=== PATIENT | male | born 1940 | race Caucasian/White ===

== ENCOUNTER 2024-04-28 08:42 | Observation (INO) ==
--- NOTE | 2024-03-23 14:00 | PAT Medication Instructions ---
Medication Instructions Date of Service March 23, 2024 Home Medications Medication Instructions Recorded celecoxib 200 mg capsule (Celebrex) 200 mg PO Q12H PRN pain #30 caps 06/25/23 atorvastatin 10 mg tablet 10 mg PO QAM tamsulosin 0.4 mg capsule 0.4 mg PO QAM bupropion HCl 100 mg tablet,12 hr sustained-release 100 mg PO QAM buspirone 10 mg tablet 10 mg PO QAM glucosamine sulf dipot chlr,msm,chond 550 mg-C 30 mg-m[place] 1 mg capsule (Gluco samine Chondroitin) 1 cap PO BID memantine 5 mg tablet 5 mg PO BID trazodone 50 mg tablet 50 mg PO HS celecoxib 200 mg capsule (Celebrex) 200 mg PO Q12H PRN pain ASK your surgeon for instructions celecoxib 200 mg capsule (Celebrex) 200 mg PO Q12H PRN pain STOP taking 2 weeks before surgery (or as soon as possible if surgery is within 2 weeks) glucosamine sulf dipot chlr,msm,chond 550 mg-C 30 mg-michoacano 1 mg capsule (Glucosamine Chondroitin) 1 cap PO BID Take morning of surgery With a small sip of water, OTHERWISE NOTHING TO EAT OR DRINK AFTER MIDNIGHT: atorvastatin 10 mg tablet 10 mg PO QAM tamsulosin 0.4 mg capsule 0.4 mg PO QAM bupropion HCl 100 mg tablet,12 hr sustained-release 100 mg PO QAM buspirone 10 mg tablet 10 mg PO QAM memantine 5 mg tablet 5 mg PO BID Take evening before surgery memantine 5 mg tablet 5 mg PO BID trazodone 50 mg tablet 50 mg PO HS Other Notes If you have any questions please call us at [phone] or [phone] or [phone] or [phone]
--- NOTE | 2024-04-05 12:49 | Anesthesiology Consultation ---
Date of Service April 05, 2024 Assessment & Plan (1) Encounter for pre-operative examination: Chart Review Chart Review: Acceptable Risk for Surgery and Patient seen in Pre Admission Testing - Discussed with Dr. Medina- patient denies any cardiac symptoms- patient can proceed as scheduled - Patient is NOT an ideal OPJ candidate (currently 23 hour obs) Per PAT appt on 04/05/24, no recent illness/disease exposures, illness related symptoms, or recent illness/disease positive tests. Will leave to surgeon's discretion if preop Covid testing needed Left Reverse TSA 06/25/23= Done under [place] with MAC #4. ETT #7.5. Atraumatic x 1 DL - Cardiology visit (06/07/23) (prior to left reverse TSA on 06/25/23): "He presents today for preop evaluation, plans to undergo shoulder replacement on 06/25/23 at [facility].. feeling well from cardiac standpoint, euvolemic on exam.. chronic bradycardia, luckily he is asymptomatic, denies syncope, he is not on any AV krish blockers, discussed if he were to become symptomatic he should immediately contact clinic, may require pacemaker.. while feeling well, I recommend he undergo dobutamine stress echo due to history of ascending aorta aneurysm and low functional capacity, would not tolerate treadmill stress echo due to orthopedic limitations.. continue all current medications at current doses.. will contact sleep medicine per patient request for new CPAP equipment" Follow up in one year - Cardiology note (06/17/23): "I called and discussed the patient's stress test results with him. He has been followed by Cardiology for history of frequent premature atrial contractions which he had been observed on Holter monitor performed in 2016, most recent slat basket maker machine performed in 2019 revealed improvement to that regard. He was has a history of moderate aortic root and mild proximal ascending aorta enlargement. The patient was recently seen in preoperative cardiology consultation by Margarita Willson PA-C of our practice. Patient has had debilitating shoulder discomfort that has been refractory to nonoperative treatment and shoulder replacement surgery is tentatively planned.. The patient underwent dobutamine stress echocardiogram today, and denies having had any chest discomfort during the test per his description to me. He did feel a brief episode of elevated heart rate toward the end of the test. The patient was found to have an abnormal stress EKG response with development of 1 to 2 millimeter horizontal and downsloping ST segment depression in the inferior and lateral leads as well as frequent PVCs and 2 short runs of nonsustained ventricular tachycardia. The echocardiographic response to pharmacologic stress was normal without stress-induced wall motion abnormalities. On further review of his chart, the patient had a previous exercise stress echocardiogram perfor [facility] in May, and at that time the exercise EKG response was similar to that observed today with stress-induced ST segment depression in the inferior and lateral leads and frequent PVCs. He went on to undergo invasive coronary angiography at that time performed by Dr. Bro with widely patient coronary anatomy. At that time it was felt that the patient had a false-positive stress EKG response. Overall, it was felt that the dobutamine stress echocardiogram results from today are reassuring in terms of his preoperative evaluation with no stress-induced angina and normal echocardiographic response. As noted, EKG response is abnormal, but similar to that observed in 2014 and was determined at that time that his EKG response was a false-positive. Moderate aortic root enlargement and mild proximal ascending aorta enlargement were noted, unchanged compared to his previous transthoracic study performed in 2020. I counseled the patient to continue his current treatment and recommended proceeding to shoulder surgery with an estimated low risk of perioperative cardiac complication." Teaching & Discussion Pre-Anesthesia Teaching/Discussion Notes: Instructed NPO after midnight before surgery,except medications with 15 cc of water. Medication instructions provided according to the PAT guidelines. History Surgery Operation Date: 04/28/24 10:00 Proposed Procedures p Left Total Knee Arthroplasty - Henrique Huynh DO Height/Weight Height: 5 ft 10 in Weight: 90 kg Allergies Allergy/AdvReac Type Severity Reaction Status Date / Time poison whit extract Allergy Intermediate Rash, Skin Verified 03/21/24 07:31 Blistering poison oak extract Allergy Intermediate Rash, Skin Verified 03/21/24 07:31 Blistering Penicillins Allergy Mild Rash Verified 03/21/24 07:31 Medications Home Medications Medication Instructions Recorded Confirmed Last Taken atorvastatin 10 mg tablet 10 mg PO QAM 01/29/20 03/21/24 06/25/23 07:30 tamsulosin 0.4 mg capsule 0.4 mg PO QAM 01/29/20 03/21/24 06/25/23 07:30 bupropion HCl 100 mg tablet,12 hr 100 mg PO QAM 06/19/21 03/21/24 Unknown sustained-release buspirone 10 mg tablet 10 mg PO QAM 05/28/23 03/21/24 06/25/23 07:30 glucosamine sulf dipot 1 cap PO BID 05/28/23 03/21/24 Unknown chlr,msm,chond 550 mg-C 30 mg-michoacano 1 mg capsule (Glucosamine Chondroitin) memantine 5 mg tablet 5 mg PO BID 05/28/23 03/21/24 06/25/23 07:30 trazodone 50 mg tablet 50 mg PO HS 05/28/23 03/21/24 06/24/23 19:30 celecoxib 200 mg capsule (Celebrex) 200 mg PO Q12H PRN pain #30 caps 06/25/23 03/21/24 Unknown Past Medical History Medical History Aortic root enlargement DSE 06/17/23: Moderately enlarged aortic root at 4.5 cm. Mildly enlarged proximal ascending thoracic aorta at 4.3 cm. Arthritis Borderline high cholesterol BPH (benign prostatic hyperplasia) GERD (gastroesophageal reflux disease) stable History of skin cancer s/p excision (ear) History of vertigo No issue x years HTN (hypertension) Per PCP records Patient denies No medications Insomnia Memory problem Short-term memory issues Migraine Sinus bradycardia asymptomatic- follows with [facility] Cardio Sleep apnea CPAP (compliant) Exercise / Class Metabolic Activity II 4-5 Yardwork/Stairs/Walk up hill (one flight of stairs - no chest pain or SOB ) Past Family History Family History Other No family history of adverse response to anesthesia Past Surgical History Surgical History H/O prostate biopsy History of colonoscopy History of ear surgery Left (as child) History of lumbar surgery no hardware History of tooth extraction S/p reverse total shoulder arthroplasty left, 05/2023 S/P umbilical hernia repair, follow-up exam 2013, [facility] Past Anesthesia History No Hx of Anesthesia Complications and No Family Hx of Anesthesia Complications History of PONV No Hx of PONV and No Hx of Motion Sickness Social History Smoking Status: Former smoker Do You Dip or Chew Tobacco: No (quit in his 20's, only chewed for short time) Smoking End Date: 40 years ago; smoked for 30 years Hx Alcohol Use: Yes Alcohol type: beer alcohol intake frequency: 0-2 drinks per day (1-2 beers/day) Hx Substance Use: No substance use type: does not use Review of Systems Patient denies chest pain, shortness of breath, dyspnea on exertion, cough, wheezing, palpitations. No hx of seizures, stroke, OK. No hx of blood clots or blood transfusions Physical Exam Vital Signs VITALS BP 127/73 P 52 TEMP 98.8 SP02 95% RESP 16 Constitutional no acute distress ENMT Mouth: no TMJ clicking Thyromental Distance: > or= 3.5 Finger Breadths (3.5) Mallampati Class: I (smaller airway) Full dentures on top and bottom Neck + limited neck extension Respiratory normal respiratory effort; no respiratory distress Auscultation: lungs clear to auscultation bilaterally; no wheezes Cardiovascular Rate/Rhythm: regular rate and regular rhythm Heart Sounds: no murmur Vessels: no carotid bruit Musculoskeletal Spine: no pain with cervical ROM Extremities: extremities normal to inspection Psychiatric Orientation: alert Lab Results Anesthesia Preop Results Results Anesthesia Widget: WBC 4.45 K/ul (4.8-10.8) L 04/05/24 Hgb 14.2 g/dl (14.0-18.0) 04/05/24 Hct 40.9 % (42.0-52.0) L 04/05/24 Plt 149 K/uL (130-400) 04/05/24 Na 140 mmol/L (136-145) 04/05/24 K 3.9 mmol/L (3.5-5.1) 04/05/24 Cl 107 mmol/L (98-107) 04/05/24 CO2 28 mmol/L (21-32) 04/05/24 BUN 18 mg/dl (6-23) 04/05/24 Creat 0.94 mg/dl (0.6-1.4) 04/05/24 Glucose Level 115 mg/dl (70-99(Fasting)) H 04/05/24 PT 10.9 Seconds (9.0-12.0) 04/05/24 PTT 25 Seconds (21-31) 04/05/24 INR 1.0 (0.9-1.1) 04/05/24 Blood Type A Negative 04/05/24 Antibody Screen NEGATIVE 04/05/24 Testing Electrocardiogram Date: 06/07/23 SB with occasional and consecutive PVCs at 58bpm Nonspecific ST abnormality Chest X-Ray Date: 05/28/23 FINDINGS: PA and lateral chest radiographs are compared to study dated 06/19/2021. The heart is enlarged noting atherosclerotic calcification of the thoracic aorta. The pulmonary vasculature is noncongested. Chronic interstitial thickening is similar to previous. There is bibasilar scarring/atelectasis. No airspace consolidation or pleural effusion is identified. There is no pneumothorax. The skeletal structures are osteopenic. The bony thorax appears intact. Degenerative change is noted in the thoracic spine. IMPRESSION: Cardiomegaly with no active disease in the chest. Echocardiogram Date: 05/10/20 LVEF 55-59%. LV wall motion is normal. Mild AR. Moderately enlarged aortic root at 4.7 cm. Mildly enlarged proximal ascending thoracic aorta at 4.2 cm. Grade 1 diastolic dysfunction. Stress Test Date: 06/17/23 Type: DSE Echocardiographic response to pharmacologic stress is normal with normal resting wall motion and no stress-induced wall motion abnormalities. The stress EKG response is abnormal with predominant of 1-2 mm horizontal and downsloping ST segment depression in the inferior and lateral leads as well as frequent ventricular ectopy and 2 short salvos of nonsustained V. tach, the longest of which was 5 beats in duration. Heart rate and blood pressure response to pharmacologic stress was normal. EKG return to pretest baseline during the post-rest recovery interval. Rest study: Mildly increased concentric LV wall thickness, mild AR, LVEF 55-59%, moderately enlarged aortic root 4.5 cm, proximal ascending thoracic aorta mildly enlarged 4.3 cm. 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 Predominant underlying rhythm was Sinus Rhythm. 6 Supraventricular Tachycardia runs occurred, the run with the fastest interval lasting 4 beats with a max rate of 141 bpm, the longest lasting 10 beats with an avg rate of 97 bpm. Isolated SVEs were rare (<1.0%), SVE. Couplets were rare (<1.0%), and SVE Triplets were rare (<1.0%). Isolated. VEs were rare (<1.0%), VE Couplets were rare (<1.0%), and no VE Triplets were present. Ventricular Bigeminy and Trigeminy were present. There are no patient markers or diary entries recorded.
[~2024-04-28 08:42] MED LIST: BUPIVACAINE 0.25% PF 30 ML VIAL ONE; BUPIVACAINE 0.5 % 5 MG/1 ML PF 10ML VIAL ONE; MIDAZOLAM HCL 1 MG/ML 2ML VIAL ONE
[2024-04-28] MEDS ORDERED: fentaNYL citrate PF 100 MCG/2 ML VIAL IV PRN (09:54)
[2024-04-28] MEDS: FAMOTIDINE 20 MG TAB PO SCH (09:54)
[2024-04-28] MEDS ORDERED: ONDANSETRON INJ 2 MG/ML 2 ML VIAL IV PRN ×2 (09:54→14:24)
[2024-04-28] MEDS ORDERED: ePHEDrine sulfate 50 MG/ML AMP IV PRN (09:54)
[2024-04-28] MEDS ORDERED: ATROPINE SULFATE 0.1 MG/ML 10ML SYR IV PRN (09:54)
[2024-04-28] MEDS: LR 60ML/HR IV SCH (09:54)
[2024-04-28] MEDS: ACETAMINOPHEN 500 MG TAB PO SCH ×2 (09:54→14:50)
[2024-04-28] MEDS: GABAPENTIN 300 MG CAP PO SCH (09:54)
[2024-04-28] MEDS: dexAMETHasone**PF** 10 MG/ML VIAL IV SCH (09:54)
[2024-04-28] MEDS: LR 500ML BOLUS, THEN 15ML/HR IV SCH (09:55)
--- NOTE | 2024-04-28 10:15 | History & Physical Bridge Note ---
Date of Service April 28, 2024 History & Physical Bridge Note I have examined the patient, reviewed the History & Physical and in the interval since the performance of the History & Physical I have noted the following changes of clinical significance: no changes noted
[2024-04-28] MEDS: TRANEXAMIC ACID 1,000 MG **IV Pre-op IV SCH (11:05)
--- OUTSIDE RECORDS SUMMARY | 2024-04-28 11:27 | External Medical Summary | Summary of Care ---
Author Name Unknown Organization [facility] Address [address] [place] [address] Phone [phone] Care Team Providers Care Treater Name Role Phone Ger Contreras MD Primary Care Provider [phone] Encounter Details Date Type Department Care Team (Late st Contact Info) Description 04/20/2024 Orders Only PATIENT PORTAL DO NOT DELETE THIS DEPT USED BY [place] [id number] Allergies Active Allergy Reactions Criticality Noted Date Comments Penicillins 05/04/2001 rash documented as of this encounter (statuses as of 04/20/2024) Medications Misc Natural Products (GLUCOSAMINE CHONDROITIN ADV) Tablet Take 1 Tablet by mouth in the morning and 1 Tablet before bedtime. Active Apoaequorin 10 MG Oral Capsule Take by mouth daily. Active CPAP every night at bedtime. Active Diclofenac Sodium 1 % External Gel (Voltaren) Apply 2 grams topically to affected area 2 times a day. 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 Apply to right ear canal, alternate with floxin ear drops 30 mL 3 Active Omeprazole 40 MG Oral Capsule Delayed Release (PriLOSEC)Indica tions:Abdominal pain, epigastric Take 1 Capsule by mouth in the morning. 90 Capsule 3 04/06/2024 8:04 PM EST 4 Active Finasteride 5 MG Oral Tablet (Proscar) Take 1 Tablet by mouth in the morning. 90 Tablet 3 02/09/2024 10:54 AM EST 4 Active busPIRone HCl 10 MG Oral Tablet (Buspar) take 1 tablet by mouth twice a day 180 Tablet 2 03/08/2024 6:32 PM EST 4 Active Atorvastatin Calcium 10 MG Oral Tablet (Lipitor) TAKE ONE TABLET BY MOUTH EVERY DAY 90 Tablet 1 03/14/2024 11:37 AM EST 4 Active Memantine HCl 5 MG Oral Tablet (Namenda) TAKE ONE TABLET BY MOUTH EVERY DAY IN THE MORNING AND TAKE ONE TABLET BY MOUTH EVERY DAY BEFORE BEDTIME 180 Tablet 3 03/28/2024 10:44 AM EST 4 12/28/19 25 Active traZODone HCl 50 MG Oral Tablet (Desyrel) take one tablet by mouth at bedtime 90 Tablet 1 02/10/2024 2:55 PM EST 4 Active Tamsulosin HCl 0.4 MG Oral Capsule (Flomax) TAKE ONE CAPSULE BY MOUTH EVERY DAY IN THE MORNING 90 Capsule 1 03/28/2024 10:44 AM EST 4 03/27/20 25 Active documented as of this encounter (statuses as of 04/20/2024) Active Problems Problem Noted Date Diagnosed Date Chronic insomnia 04/18/2024 Prostate nodule 05/26/2023 Overweight (BMI 25.0-29.9) 07/06/2022 Primary osteoarthritis of both shoulders 022 Restless legs syndrome 08/04/2021 ALOK (generalized anxiety disorder) 07/30/2020 Gastroesophageal reflux dise ase with esophagitis without hemorrhage 07/27/2020 BPH with obstruction/lower urinary tract symptom s 04/05/2018 Aneurysm, ascending aorta 04/03/2016 Sinus bradycardia 04/03/2016 Hx of nonmelanoma skin cancer 10/15/2014 Overview (03/13/2020): Hx NMSC - most recently 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, 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 Premature atrial complexes 07/03/2016 0 07/27/2020 Frequent PVCs 04/03/2016 05/10/2017 Hx of actinic keratosis 03/18/2016 05/0 03/2020 Overview (10/18/2019): Historical. Bronchitis, complicated 08/13/201401/28 Sinus congestion 08/13/2014 02/19/2016 Enlarged thoracic aorta 07/09/201408/2016 Aortic regurgitation 07/09/2014 021 Abnormal stress echocardiogram 05/31/2014 08/30/2017 Abnormal coagulation profile 05/31/2014 05/31/2014 Hernia, inguinal 05/23/2014 02/26/2017 SOB (shortness of breath) 05/23/2014 Lipoma of breast 05/23/2014 08/30/2017 Lipoma of arm 05/23/2014 03/18/2016 Abdominal pain, generalized 06/12/2013 05/23/2014 Blood in stool 06/12/2013 05/23/2014 Right leg numbness 09/12/2012 5 Dyslipidemia, goal to be determined 02/09/2012 09/12/2012 Snoring 04/15/2011 05/23/2014 Overview (07/09/2015): ICD-10 update of inactive term Malaise and fatigue 04/15/2011 05/23/19 15 Sciatica 02/25/2011 05/23/2014 Family history of ischemic heart disease 08/13/2009 11/17/2016 Dyslipidemia, goal to be determined 03/07/2009 03/13/2013 Overview (03/07/2009): Per Lipid Taxonomy. Sleep apnea 10/20/2007 07/17/2011 Overview (04/24/2011): Wears CPAP AHP Chronic rhinitis 10/07/2007 09/12/2012 Subjective tinnitus 10/07/2007 09/13/19 13 Dyspnea and respiratory abnormality 10/07/2007 09/12/2012 Overview (01/19/2017): ICD-10 update of inactive term Elevated blood pressure, situational 09/23/2007 11/28/2010 Elevated blood pressure, situational 09/23/2007 10/20/2007 Anxiety state 07/11/2007 05/23/2014 ADVANCE DIRECTIVE INFORMATION 11/06/2005 10/18/2019 Overview (10/18/2019): Pt declines booklet. Historical. GENERAL OSTEOARTHROSIS 08/04/200405/23 Reflux esophagitis 08/04/2004 5 PURE HYPERCHOLESTEROLEM 02/26/200302/26 Overview (03/07/2009): Per Lipid Taxonomy. 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 Deviated nasal septum 2014 documented as of this encounter (statuses as of 04/20/2024) Immunizations Name Administration Dates Next Due Seasonal Influenza Vac., MDV, IM, 0.5 mL (Fluzon e) 03/09/2007 TDAP (age 10 and older)(Boostrix) 02/26/2017 Zoster Vaccine Recombinant (Shingrix) 05/11/2018 ,03/02/2018 documented as of this encounter Social History Tobacco Use Types Packs/Day Years Used Date Smoking Tobacco: Former Cigars Smokeless Tobacco: Never Comments:smokes 4-6 cigars/d aily Alcohol Use Standard Drinks/Week Comments Yes 0 (1 standard drink = 0.6 oz pur e alcohol) occ PHQ-2 Answer Date Recorded PHQ-2 Score 0 10/31/2019 Hunger Vital Sign Answer Date Recorded Within the past 12 months, y ou worried that your food would run out before you got the money to buy more. Never true 07/31/19 21 Within the past 12 months, t he food you bought just didn't last and you didn't have money to get more. 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 Not on file Not on file Not on fi le documented as of this encounter Plan of Treatment Upcoming Encounters Date Type Department Care Team (Late st Contact Info) Description 10/16/2024 8:20 AM EDT Office Visit Family Practice [facility] [address] [place] [address] Ger Contreras MD [address] [place] [address] 12/15/2024 9:00 AM EDT Laboratory Laboratory [facility] [address] [place] [id number] [facility] [address] [place] [address] 12/22/2024 10:15 AM EDT Office Visit Urology Betty Velasquez [address] [address] Keaton Krishna MD [address] [address] 02/27/2025 9:00 AM EST Office Visit Sleep Disorders Ctr [facility] [address] [place] [phone] Cyndi Parker CRNP [address] [place] [address] Scheduled Procedures Name Priority Associated Diagnoses Date/Ti me COLONOSCOPY FLEXIBLE PROXIMA L DIAGNOSTIC Recall Special screening for malignant neoplasms, colon Health Maintenance Due Date Last Done Comments Pneumococcal Vaccine: 50+ Years (1 of 1 - PCV) 01/09/1992 Adult Wellness Visit 01/09/2008 Albumin/Creatinine Ratio 07/26/2017 07/26/2014 Depression Screening 10/30/2020 10/31/2019 COVID-19 Vaccine ( - 2023- season) 2023 Influenza Vaccine (FLU shot) (#1) 2023 03/09/2007 GFR 04/06/2024 04/06/2023, 10/28, 06/19/2021, Additional history exists DTap/Tdap Vaccines (2 - Td or Tdap) 02/26/2027 02/26/2017, 04/29/2004, 09/26/1994 Zoster Vaccines Completed 05/11/2018, 03/02/2018 HPV (Gardasil) Vaccine Aged Out No lo nger eligible based on patient's age to complete this topic Hepatitis B Vaccine Aged Out No longe r eligible based on patient's age to complete this topic MENINGOCOCCAL (MENACTRA/MENVEO) Aged Out No longer eligible based on patient's age to complete this topic documented as of this encounter Medical Devices Implanted Type Area Launch [employer] Device Identifier Shelf Expiration Date Model / Serial / Lot 3d Max Lite Mesh Bard Implanted:Qty : 1 on 11/06/2013 at OR [facility] Tissue - Non Human Left: Groin 01/26/2018 [id number] / / [id number] 3d Max Lite Mesh Large Right Implanted:Qty : 1 on 11/06/2013 at OR [facility] Tissue - Non Human Right: Groin 08/06/2018 [id number] / / [id number] 3dmax Mesh Implanted:Qty : 1 on 11/06/2013 at OR [facility] Tissue - Non Human Left: Groin 04/28/2018 [id number] / / [id number] Hernia Patch Implanted:Qty : 1 on 11/06/2013 at OR [facility] Tissue - Non Human N/A: Abdomen 05/27/2015 [id number] / / [id number] documented as of this encounter Care Teams Treater Relationship Specialty Start Date End Date Ger Contreras MD [address] [facility] [place] [address] PCP - General Family Medicine 04/14/21 documented as of this encounter
--- OUTSIDE RECORDS SUMMARY | 2024-04-28 11:27 | External Medical Summary | Summary of Care ---
Author Name Unknown Organization [facility] Address [address] [place] [address] Phone [phone] Care Team Providers Care Bike Designer Name Role Phone Ger Contreras MD Primary Care Provider [phone] Encounter Details Date Type Department Care Team (Late st Contact Info) Description 04/18/2024 Population Health External Data Unspecified Department Allergies Active Allergy Reactions Criticality Noted Date Comments Penicillins 05/04/2001 rash documented as of this encounter (statuses as of 04/18/2024) Medications Misc Natural Products (GLUCOSAMINE CHONDROITIN ADV) [...] 90 Capsule 3 04/06/2024 8:04 PM EST 03/12/202 4 Active Finasteride 5 MG Oral Tablet [...] as of this encounter (statuses as of 04/18/2024) Active Problems Problem Noted Date Diagnosed Date [...] SCCIS and L antihelix - SCC [place] [facility] [place] Dyslipidemia 09/12/2012 Overview (07/29/2015): ICD-10 update of inactive term MARY on CPAP 07/17/2011 HTN, goal below 130/80 11/28/2010 Diverticulosis of colon 08/25/2001 Attention deficit disorder (ADD) without hyperac tivity Overview (07/30/2020): Sees psych at [place] documented as of this encounter (statuses as of 04/18/2024) Resolved Problems Problem Noted Date Diagnosed Date [...] as of this encounter (statuses as of 04/18/2024) Immunizations Name Administration Dates Next Due Seasonal [...] 8:20 AM EDT Office Visit Family Practice [facility] [address] [address] Ger Contreras MD [address] [address] 12/15/2024 9:00 AM EDT Laboratory Laboratory [facility] [address] [place] [phone] [facility] 12/22/2024 10:15 AM EDT Office Visit Urology Betty Velasquez [address] [address] Keaton Krishna MD [address] [address] 02/27/2025 9:00 AM EST Office Visit Sleep Disorders Ctr [facility] [address] [phone] Cyndi Parker CRNP [address] [address] Scheduled Procedures Name Priority Associated Diagnoses Date/Ti me COLONOSCOPY FLEXIBLE PROXIMA L DIAGNOSTIC Recall Special screening for malignant neoplasms, colon Health Maintenance Due Date Last Done Comments Pneumococcal Vaccine: 50+ Years (1 of 1 - PCV) 01/09/1992 Adult Wellness Visit 01/09/2008 Albumin/Creatinine Ratio 07/26/2017 07/26/2014 Depression Screening 10/30/2020 10/31/2019 COVID-19 Vaccine (1 - season) 2023 Influenza Vaccine (FLU shot) (#1) [...] this encounter Medical Devices Implanted Type Area [employer] Device Identifier Shelf Expiration Date Model / Serial / Lot 3d Max Lite Mesh Bard Implanted:Qty : 1 on 11/06/2013 at OR [facility] Tissue - Non Human Left: Groin 01/26/2018 [id number] / / [id number] 3d Max Lite Mesh Large Right Implanted:Qty : 1 on 11/06/2013 at OR [facility] Tissue - Non Human Right: Groin 08/06/2018 [id number] / / [id number] 3dmax Mesh Implanted:Qty : 1 on 11/06/2013 at OR [facility] Tissue - Non Human Left: Groin 04/28/2018 [id number] / / [id number] Hernia Patch Implanted:Qty : 1 on 11/06/2013 at OR [facility] Tissue - Non Human N/A: Abdomen 05/27/2015 [id number] / / [id number] documented as of this encounter Care Teams Bike Designer Relationship Specialty Start Date End Date Ger Contreras MD [address] [address] PCP - General Family Medicine 04/14/21 documented as of this encounter
--- OUTSIDE RECORDS SUMMARY | 2024-04-28 11:27 | External Medical Summary | Summary of Care ---
Author Name Unknown Organization [facility] Address [address] [place] [address] Phone [phone] Care Team Providers Care Direct Marketing Intern Name Role Phone Ger Contreras MD Primary Care Provider [phone] Reason for Visit * Reason Comments Follow Up Pt here for follow u p Encounter Details Date Type Department Care Team (Latest Contact Info) Description 04/18/2024 8:00 AM EST [facility] [address] [place] [address] Ger Contreras MD [address] [facility] [place] [address] HTN, goal below 130/80*; MARY on CPAP; Dyslipidemia; Gastroesophageal reflux disease with esophagitis without hemorrhage; BPH with obstruction/lower urinary tract symptoms; Primary osteoarthritis of both shoulders; Overweight (BMI 25.0-29.9); ALOK (generalized anxiety disorder); Attention deficit disorder (ADD) without hyperactivity; Chronic insomnia Allergies Active Allergy Reactions Criticality Noted Date [...] 2 times a day. 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 Apply to right ear canal, alternate with floxin ear drops 30 mL 03/03/20 23 Active Omeprazole 40 MG Oral Capsule Delayed Release (PriLOSEC)Indic ations:Abdomina l pain, epigastric Take 1 Capsule by mouth in the morning. 90 Capsule 3 5 8:04 PM EST 06/08/19 24 Active Finasteride 5 MG Oral Tablet (Proscar) Take 1 Tablet by mouth in the morning. 90 Tablet 3 4 10:54 AM EST 06/08/19 24 Active busPIRone HCl 10 MG Oral Tablet (Buspar) take 1 tablet by mouth twice a day 180 Tablet 2 4 6:32 PM EST 06/30/19 24 Active Atorvastatin Calcium 10 MG Oral Tablet (Lipitor) TAKE ONE TABLET BY MOUTH EVERY DAY 90 Tablet 1 4 11:37 AM EST 12/28/19 24 Active Memantine HCl 5 MG Oral Tablet (Namenda) TAKE ONE TABLET BY MOUTH EVERY DAY IN THE MORNING AND TAKE ONE TABLET BY MOUTH EVERY DAY BEFORE BEDTIME 180 Tablet 3 4 10:44 AM EST 12/28/19 24 025 Active traZODone HCl 50 MG Oral Tablet (Desyrel) take one tablet by mouth at bedtime 90 Tablet 1 4 2:55 PM EST 02/09/20 24 Active Tamsulosin HCl 0.4 MG Oral Capsule (Flomax) TAKE ONE CAPSULE BY MOUTH EVERY DAY IN THE MORNING 90 Capsule 1 4 10:44 AM EST 03/27/20 24 025 Active busPIRone HCl 10 MG Oral Tablet (Buspar) take 1 tablet by mouth three times a day 270 Tablet 1 03/15/20 24 025 Discontinued documented as of this encounter (statuses as [...] hyperac tivity Overview (07/30/2020): Sees psych at [place] documented as of this encounter (statuses as of 04/18/2024) Resolved Problems Problem Noted Date Diagnosed Date Resolved Date Prediabetes 07/07/2022 08/05/2022 Hx of atypical nevus 03/19/2017 021 Overview (10/18/2019): Historical. Premature atrial complexes 07/03/2016 0 07/27/2020 Frequent PVCs 04/03/2016 05/10/2017 Hx of actinic keratosis 03/18/2016 050 03/2020 Overview (10/18/2019): Historical. Bronchitis, complicated 08/13/201401/28 Sinus congestion 08/13/2014 02/19/2016 Enlarged thoracic aorta 07/09/20140 08/2016 Aortic regurgitation 07/09/2014 021 Abnormal stress echocardiogram [...] fi le documented as of this encounter Last Filed Vital Signs Vital Sign Reading Time Taken Comments Blood Pressure 120/78 04/18/2024 8:11 AM EST Pulse 52 04/18/2024 8:11 AM EST Temperature 36.1 C (96.9 F) 04/18/2024 8:11 AM ES T Respiratory Rate 18 04/18/2024 8:11 AM EST Oxygen Saturation - - Inhaled Oxygen Concentration - - Weight 90.3 kg (199 lb) 04/18/2024 8:11 AM EST Height 177.8 cm (5' 10") 04/18/2024 8:11 AM EST Body Mass Index 28.55 04/18/2024 8:11 AM EST documented in this encounter Progress Notes * Ger Contreras MD - 04/18/2024 8:42 AM EST SUBJECTIVE: Ric Hodges is a 84 year old male. Chief Complaint Patient presents with Follow Up Pt here for follow up HPI: Frederick is doing very well. He is having knee surgery at the end of this month. He has no cardiopulmonary symptoms. Blood work reviewed. Medications reviewed. Patient Active Problem List Diagnosis Diverticulosis of colon Attention deficit disorder (ADD) without hyperactivity HTN, goal below 130/80 MARY on CPAP Dyslipidemia Hx of nonmelanoma skin cancer Aneurysm, ascending aorta (HCC) Sinus bradycardia BPH with obstruction/lower urinary tract symptoms Gastroesophageal reflux disease with esophagitis without hemorrhage ALOK (generalized anxiety disorder) Restless legs syndrome Primary osteoarthritis of both shoulders Overweight (BMI 25.0-29.9) Prostate nodule Chronic insomnia Current Outpatient Medications Medication Sig Dispense [place] [facility] [place] Natural Products (GLUCOSAMINE CHONDROITIN ADV) Tablet Take 1 Tablet by mouth in the morning and 1 Tablet before bedtime. Apoaequorin 10 MG Oral Capsule Take by mouth daily. CPAP every night at bedtime. Diclofenac Sodium 1 % External Gel (Voltaren) Apply 2 grams topically to affected area 2 times a day. 300 g 3 Clotrimazole 1 % External Solution (Mycelex) Apply topically to affected area 2 times a day. Apply to right ear canal, alternate with floxin ear drops 30 mL 0 Omeprazole 40 MG Oral Capsule Delayed Release (PriLOSEC) Take 1 Capsule by mouth in the morning. 90Capsule 3 Finasteride 5 MG Oral Tablet (Proscar) Take 1 Tablet by mouth in the morning. 90 Tablet 3 busPIRone HCl 10 MG Oral Tablet (Buspar) take 1 tablet by mouth twice a day 180 Tablet 2 Atorvastatin Calcium 10 MG Oral Tablet (Lipitor) TAKE ONE TABLET BY MOUTH EVERY DAY 90 Tablet 1 Memantine HCl 5 MG Oral Tablet (Namenda) TAKE ONE TABLET BY MOUTH EVERY DAY IN THE MORNING AND TAKEONE TABLET BY MOUTH EVERY DAY BEFORE BEDTIME 180 Tablet 3 traZODone HCl 50 MG Oral Tablet (Desyrel) take one tablet by mouth at bedtime 90 Tablet 1 Tamsulosin HCl 0.4 MG Oral Capsule (Flomax) TAKE ONE CAPSULE BY MOUTH EVERY DAY IN THE MORNING 90 Capsule 1 No current facility-administered medications for this visit. Allergy: Review of patient's allergies indicates: Allergen Reactions Penicillins rash OBJECTIVE: BP 120/78 | Pulse 52 | Temp 96.9 F (36.1 C) | Resp 18 | Ht 5' 10" (1.778 m) | Wt 199 lb (90.3 kg) | BMI 28.55 kg/m | BSA 2.11 m General: alert, healthy, and no distress Head: Normocephalic, No masses, lesions, tenderness or abnormalities Neck: supple, no adenopathy, no bruits, thyroid normal size, non-tender, without nodularity Lungs: chest symmetric with normal AP diameter, no chest deformities noted, no chest wall tenderness, lungs clear to auscultation Heart: regular rate & rhythm, no murmur, and no gallops Abdomen: abdomen soft, non-tender, normal bowel sounds, and no masses or organomegaly Extremities: less than 2 second capillary refill, no joint deformities, effusion, or inflammation ASSESSMENT AND PLAN: (I10) HTN, goal below 130/80 (primary encounter diagnosis) Plan: BASIC METABOLIC PANEL, ALBUMIN / CREATININE RATIO, URINE -stable (G47.33) MARY on CPAP Plan: stable (E78.5) Dyslipidemia Plan: continue statin (K21.00) Gastroesophageal reflux disease with esophagitis without hemorrhage Plan: quiescent (N40.1, N13.8) BPH with obstruction/lower urinary tract symptoms Plan: stable on rx (M19.011, M19.012) Primary osteoarthritis of both shoulders Plan: improved (E66.3) Overweight (BMI 25.0-29.9) 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 No other complaints were offered at this time. Ger Contreras MD documented in this encounter Nursing Notes * Yani Thayer, BOOKMOBILE CLERK - 04/18/2024 8:11 AM EST The patient has been properly identified by confirmation of name and date of . Chief Complaint Patient presents with Follow Up Pt here for follow up documented in this encounter Plan of Treatment Upcoming Encounters Date Type Department Care Team (Late st Contact Info) Description 10/16/2024 8:20 AM EDT Office Visit Family Practice [facility] [address] [address] Ger Contreras MD [address] [address] 12/15/2024 9:00 AM EDT Laboratory Laboratory [facility] [address] [place] [phone] [place], [address] [place] [address] 12/22/2024 10:15 AM EDT Office Visit Urology Betty Velasquez [address] [address] Keaton Krishna MD [address] [address] 02/27/2025 9:00 AM EST Office Visit Sleep Disorders Ctr [facility] [address] [phone] Cyndi Parker CRNP [address] [address] Scheduled Orders Name Type Priority Associated Diagnoses Orde r Schedule BASIC METABOLIC PANEL Lab Routine HTN, goal below 130/80 Expected: 04/18/2024 (Approximate), Expires: 04/18/2025 ALBUMIN / CREATININE RATIO, URINE Lab Routine HTN, goal below 130/80 Expected: 04/18/2024 (Approximate), Expires: 04/18/2025 Scheduled Procedures Name Priority Associated Diagnoses Date/Ti [...] this encounter Medical Devices Implanted Type Area Field Cane Scaler Helper Device Identifier Shelf Expiration Date Model / Serial / Lot 3d Max Lite Mesh Bard Implanted:Qty : 1 on 11/06/2013 at OR [facility] Tissue - Non Human Left: Groin 01/26/2018 [id number] / / [id number] 3d Max Lite Mesh Large Right Implanted:Qty : 1 on 11/06/2013 at OR [facility] Tissue - Non Human Right: Groin 08/06/2018 [id number] / / [id number] 3dmax Mesh Implanted:Qty : 1 on 11/06/2013 at OR [facility] - Non Human Left: Groin 04/28/2018 [id number] / / [id number] Hernia Patch Implanted:Qty : 1 on 11/06/2013 at OR [facility] - Non Human N/A: Abdomen 05/27/2015 [id number] / / [id number] documented as of this encounter Visit Diagnoses Diagnosis HTN, goal below 130/80- Primary Unspecified essential hypertension MARY on CPAP Obstructive sleep apnea (adult) (pediatric) Dyslipidemia Other and unspecified hyperlipidemia Gastroesophageal reflux disease with esophagitis without hemorrhage BPH with obstruction/lower urinary tract symptoms Hypertrophy of prostate with urinary obstruction and other lower urinary tract symptoms (LUTS) Primary osteoarthritis of both shoulders Overweight (BMI 25.0-29.9) Overweight ALOK (generalized anxiety disorder) Generalized anxiety disorder Attention deficit disorder (ADD) without hyperactivity Chronic insomnia Insomnia, unspecified documented in this encounter Care Teams Direct Marketing Intern Relationship Specialty Start Date End Date Ger Contreras MD [address] [place] [address] PCP - General Family Medicine 04/14/21 documented as of this encounter
[2024-04-28] MEDS: ceFAZolin 2000MG 2,000 MG/15 ML SYR IV SCH ×2 (11:52→20:20)
[2024-04-28] MEDS: ROPIV 0.5% 246mg, Ketorolac 30mg, EPINEPHrine 0.5mg in NSS INFIL SCH (12:21)
[2024-04-28] MEDS: ORTHO JOINT ANESTHETIC ONE (12:21)
[2024-04-28] MEDS: TRANEXAMIC ACID 1,000 MG **IV Intra-op IV SCH (12:45)
[2024-04-28] MEDS ORDERED: PROPOFOL IV EMULSION 10 MG/ML 20 ML VIAL IV ONE (12:52)
--- NOTE | 2024-04-28 13:02 | Operative Report ---
PG Post Operative Report Pre & Post Diagnosis Operation Date: 04/28/24 11:00 Pre-Op Diagnosis: Left Knee Degenerative Joint Disease Post-Op Diagnosis: Left Knee Degenerative Joint Disease I identified the patient and participated in the time-out.: Yes Procedure Operation Date: 04/28/24 11:00 Actual Procedures p Left Total Knee Arthroplasty, Cemented(Left) - Henrique Huynh DO Surgeon Henrique Huynh DO Program Manager Rn Zeeshan Singh PA-C Estimated Blood Loss 50 Findings Consistent with Post-Op Diagnosis Specimens Left femoral tibial bone Description of Procedure Implants used: I used a Iona Persona total knee arthroplasty system with a size 10 CR femur, F tibia, 31 oval patella, and a size 12 medial congruent polyethylene bearing. All components were cemented in place with Biomet cement. [facility] for the above procedure. He was seen in the preoperative holding area and the operative extremity was identified and signed. He was given a preoperative antibiotic, TXA, a spinal anesthetic and an adductor nerve block. He was taken back to the operating room and laid on the table in supine position. He was given basic sedation. The operative knee was then prepped and draped in sterile fashion. A timeout was done, and the patient and the operative extremity was properly identified. A midline incision was made directly over the patella. Dissection was taken down to the extensor mechanism. A medial parapatellar arthrotomy was used. The medial retinaculum was released and the fat pad was mostly excised. The knee was flexed and the ACL, PCL, and meniscus were removed. A drill was sent down the center of the femoral canal followed by an intramedullary shi. Off that shi a distal femoral cutting block was placed. 9 mm was resected off the distal femur at 5 of valgus. A posterior referencing AP sizing guide was then placed on the distal femur. The femur measured to be a size 10. 2 drill holes were placed in 3 of external rotation. A 4-in-1 cutting block was then impacted into place. Anterior, posterior, and chamfer cuts were then made. The proximal tibia was then exposed. An external tibial alignment guide was placed. A tibial cut guide was then anchored in place and the proximal tibia was then resected. The posterior aspect of the knee was then opened up and any additional meniscus fragments and osteophytes were removed. The tibia measured to be a size F. The tibial plate was then placed in the appropriate rotation and the tibia was drilled and punched. Trial components were then placed. I used a size 12 medial congruent polyethylene insert. The knee was brought through a full range of motion and felt to be stable. The peg holes for the femoral component were then drilled. The patella was then everted and 9 mm was resected off the posterior aspect of the patella. The patella measured to be a size 31 oval. 3 peg holes were then drilled. A trial patella was placed. The knee was once again brought through a full range of motion and felt to be stable. Trial components were then removed. The surrounding soft tissues were injected with 100 cc of an orthopedic pain control cocktail. All components were then cemented into place with Biomet cement. The final polyethylene insert was then snapped into place. Once cement was dry the tourniquet was deflated. Hemostasis was obtained. A dilute betadyne lavage was then done for 3 minutes. The joint was then irrigated with normal saline solution. The medial pa rapatellar arthrotomy was then closed with #1 Vicryl suture. The skin was closed with 2-0 Vicryl, 3-0V lock suture, and sherman. A soft compressive dressing was placed. He was then transferred to a hospital bed and taken to the postanesthesia care unit in stable condition. He tolerated the procedure well. Zeeshan Singh PA-C, was present for the entire procedure. He was critical for patient positioning, prepping, draping, retraction exposure, wound closure and application of sterile dressing. I attest to the content of the Intraoperative Record and any orders documented therein. Any exceptions are noted below.
--- NOTE | 2024-04-28 13:57 | XRay Report ---
XR knee LT 1 or 2V routine CLINICAL HISTORY: Surgical Post Op COMPARISON: None FINDINGS: Left knee prosthesis shows no hardware complication. There is expected soft tissue gas. Sk in sherman are present. IMPRESSION: Unremarkable postoperative exam. ACT 112: Negative or not required by law. Electronically signed by: Yuri Tobias M.D. 04/28/2024 1:56 PM
[2024-04-28] MEDS ORDERED: METOCLOPRAMIDE HCL INJ 5 MG/ML 2 ML VIAL IV PRN (14:24)
[2024-04-28] MEDS ORDERED: HYDROmorphone INJ 0.5 MG/0.5 ML SYR IV PRN (14:24)
[2024-04-28] MEDS ORDERED: NALOXONE HCL 0.4 MG/1 ML VIAL/CARP IV PRN (14:24)
[2024-04-28] MEDS ORDERED: bisacodyL 10 MG SUPP PR PRN (14:24)
[2024-04-28] MEDS ORDERED: oxyCODONE HCL IR 5 MG TAB (IMMEDIATE RELEASE) PO PRN (14:24)
[2024-04-28] MEDS ORDERED: MAGNESIUM HYDROXIDE SUSP 30 ML UDC PO PRN (14:24)
--- NOTE | 2024-04-28 14:41 | Anesthesiology Progress Note ---
Date of Service April 28, 2024 Anesthesia Post Procedure Vital Signs Vital Signs: Temp Pulse Pulse Resp BP BP Pulse Ox 04/28/24 14:25 36.5 C 69 16 128/69 94 04/28/24 14:00 36.6 C 71 15 132/66 96 04/28/24 13:50 68 15 132/71 96 04/28/24 13:40 71 15 139/71 94 04/28/24 13:30 75 15 123/69 97 04/28/24 13:20 71 15 126/72 97 04/28/24 13:11 36.9 C 77 15 121/55 L 95 04/28/24 09:29 20 162/64 H 96 04/28/24 09:29 36.7 C 52 L 20 153/74 H 96 O2 Del Method O2 Flow Rate 04/28/24 14:25 Room Air 04/28/24 14:00 Room Air 04/28/24 13:50 Room Air 04/28/24 13:40 Room Air 04/28/24 13:30 Room Air 04/28/24 13:20 Room Air 04/28/24 13:11 Oxymask 5 04/28/24 09:29 Room Air 04/28/24 09:29 Room Air Pain Intensity Left Knee: Pain Intensity: 3 Transfer of Care Handoff Completed per policy Notes Mental Status: alert / awake / arousable and participated in evaluation Patient Amnestic to Procedure: Yes Nausea / Vomiting: adequately controlled Pain: adequately controlled Airway Patency, RR, SpO2: stable & adequate BP & HR: stable & adequate Hydration State: stable & adequate Neuraxial Anesthesia: was administered and sensory block is resolving Anesthetic Complications: no major complications apparent and Pt Satisfied with anesthetic care
[2024-04-28] MEDS: KETOROLAC TROMETHAMINE 15 MG/ML VIAL IV SCH (14:50)
[2024-04-28] MEDS ORDERED: ceFAZolin 1000MG 1,000 MG/7.5 ML SYR IV SCH (19:15)
[2024-04-28] MEDS: DOCUSATE SODIUM 100 MG CAP PO SCH (20:21)
[2024-04-28] MEDS: SENNA 8.6 MG TAB PO SCH (20:21)
[2024-04-28] MEDS: MEMANTINE HCL 5 MG TAB PO SCH (21:22)
[2024-04-28] MEDS: traZODone HCL 50 MG TAB PO SCH (21:22)
[2024-04-28] MEDS: ASPIRIN 81 MG ECTAB PO SCH (21:22)
[2024-04-29 04:44] VITALS: TEMP 98.1
[2024-04-29 06:56] LABS: Hematocrit (blood only) 35.7 % (42.0-52.0); Hemoglobin 12.4 g/dl (14.0-18.0); Mean Corpuscular Hemoglobin 31.5 pg (25.0-34.0); Mean Corpuscular Hgb Conc 34.7 g/dL (32.0-36.0); Mean Corpuscular Volume 90.6 fL (80.0-100.0); Mean Platelet Volume 9.2 fL (9.4-12.4); Platelet Count 160 K/uL (130-400); RDW Coefficient of Variation 12.8 % (11.5-14.5); RDW Standard Deviation 42.6 fL (36.4-46.3); Red Blood Count 3.94 M/uL (4.70-6.10); White Blood Count 10.96 K/ul (4.8-10.8)
[2024-04-29 07:18] LABS: Calcium 9.1 mg/dl (8.6-10.3); Potassium 3.9 mmol/L (3.5-5.1)
--- NOTE | 2024-04-29 07:22 | Orthopedic Progress Note ---
Date of Service April 29, 2024 Assessment & Plan (1) Status post left knee replacement: Overall he is doing very well. He is not having much pain in the left knee. He will be seen by physical therapy today for ambulation and range of motion exercises. The nursing staff can change his dressing after physical therapy. He is on aspirin for DVT prophylaxis. He can be discharged home later today. He will follow-up with orthopedics in 2 weeks. Ceci Mack was seen and examined at bedside this morning. Overall is doing very well. He is not having much pain in the left knee. He has been up and ambulating to the bathroom. He has no complaints... Review of Systems All systems reviewed & are unremarkable except as noted in HPI & below. Physical Exam On physical exam the left knee, the dressing is clean and dry. His leg is out full extension. He has active dorsiflexion plantarflexion of his left ankle.. Results & Data Results & Data Laboratory Results . Diagnostic Findings Postoperative x-rays of the left knee show the prosthesis to be in anatomic alignment without any evidence of fracture, dislocation, or loosening.. PG Care Time/CCT Total # of Minutes Spent Total Time Spent with Patient: Total time spent is greater than 50% in coordination of care (as documented) at patient's floor/unit and/or counseling patient: Coding Level of Care Code 70612 Post Operative Follow-Up Diagnoses Status post left knee replacement Z96.652
--- NOTE | 2024-04-29 07:23 | Discharge Summary ---
Date of Service April 29, 2024 Principal Diagnosis Same as "Discharge Diagnosis" noted below under Discharge Instructions. Discharge Exam On physical exam the left knee, the dressing is clean and dry. His leg is out full extension. He has active dorsiflexion plantarflexion of his left ankle.. Discharge Data Procedures Performed Operation Date: 04/28/24 11:00 Actual Procedures p Left Total Knee Arthroplasty, Cemented(Left) - Henrique Huynh DO Ordered Studies 04/28/24 05:00 US - OR guided needle placemen Routine Hospital Course (1) Status post left knee replacement: On April 28, 2024 Frederick arrived at [facility] and underwent a left knee replacement without complication. He had a spinal anesthetic. Postoperatively he was started on aspirin for DVT prophylaxis and transferred to the general orthopedic floors. His hospital course was uneventful. On postop day #1, his vital signs were stable and his pain was well-controlled. He was able to participate well with physical therapy doing ambulation and range of motion exercises. He was then discharged to home. He will follow-up with orthopedics in 2 weeks. PG Care Time/CCT Total # of Minutes Spent Total Time Spent with Patient: Total time spent is greater than 50% in coordination of care (as documented) at patient's floor/unit and/or counseling patient: Discharge Plan Discharge Items Patient Disposition: Home - Self-Care Reason For Visit: Left Knee Arthritis Discharge Diagnosis: Left knee replacement Activity: Per Instructions section Non-emergency contact: Surgeon Call non-emergency contact if: your wound has increased redness and your wound has increased drainage Follow-up/Referrals: Ger Contreras MD [Primary Care Provider] - Diet: Regular Addtl Attending Provider Instructions: Activity and Therapy Recommendations: * If you are using [facility] then therapy will be provided at your home until they feel you have accomplished all of your goals. * If you are using [facility] then Physical Therapy will be provided until they feel you are ready to start Outpatient Physical Therapy. * If you are not using home therapy then Outpatient Physical Therapy should start about 3-5 days from your day of surgery. Therapy will last about 6-10 weeks * It is important not to put a pillow under your knee when you are relaxing or sleeping. It is just as important to make sure you are getting your knee perfectly straight as it is to regain your knee bend. * You were shown a series of exercises in the hospital. Do these exercises three times each day including the exercises you were shown in physical therapy. * Get up and walk several times each day. For the first four weeks, try not to stand or walk for more than one hour at a time. If you do stand or walk for more than one hour, you will not hurt anything, but your leg will likely swell. * As you feel comfortable, you may change from the walker or crutches to a cane and then to independent walking. Medications: * Narcotic You will likely be sent home from the hospital with a prescription for the narcotic pain medication that worked best throughout your stay. * Cefadroxil -take the antibiotic twice a day for 10 days to help prevent infection. * Aspirin Most patients will be required to take Aspirin 81mg twice a day for 6 weeks after surgery. This is obtained [id number] and a prescription is not necessary. * Other medications may be prescribed for specific circumstances. If you have any questions, please call the office at . * Resume previous home medications unless otherwise instructed TEDs/Elastic Stockings: The white elastic stockings help limit swelling and prevent blood clots from forming in your legs.~ The more you wear them, the more they work. Wear them for six weeks. Dressing Care: The dressing can be changed after physical therapy on postop day #1. Daily dry dressing changes for a few days, especially if the incision is still draining some. If the incision is not draining then you may leave the sherman open to air. If there is a little bit of drainage or if the sherman are getting stuck on your clothing then cover the incision with a dry dressing. The sherman will be removed at your 2 week follow-up appointment. Showering: You may shower 5 days from the day of surgery as long as the incision is no longer draining. You may shower with the sherman exposed. Let soapy water run over the sherman and pat them dry. Do not scrub or soak the incision. Diet: You may resume your previous diet. Things To Watch For: * Drainage from the incision site that occurs more than one week after your surgery. * Increased redness at the incision site. * Fever above 102 degrees Fahrenheit. * Unusual chest pain or shortness of breath. * Call [facility] at with any of the above problems Follow-Up Visit: Follow-up with Dr. Huynh's office 2-3 weeks after your day of surgery. We will remove your sherman and answer any questions. If you have any additional questions or concerns, Dr Huynh is usually in the office at the same time and will be available An appointment was probably scheduled when you signed-up for surgery in the office. If you have any questions call Office Instructions: More detailed instructions as well as Frequently Asked Questions were provided in a folder by our office when you signed-up for surgery. Please review these instructions when you get home. If you have any further questions or concerns, please feel free to call the office at [phone] Pending Studies at Discharge: No Stand-Alone Forms: My [facility], Smoking Cessation Medications and DC Order Prescriptions: New cefadroxil 500 mg capsule 500 mg PO BID 10 Days Qty: 20 0RF oxycodone 5 mg tablet 5 mg PO Q6H PRN (Reason: pain) Qty: 30 0RF aspirin 81 mg Tablet,Delayed Release (Dr/Ec) 81 mg PO BID 42 Days Qty: 84 0RF Continued atorvastatin 10 mg tablet 10 mg PO QAM tamsulosin 0.4 mg capsule 0.4 mg PO QAM bupropion HCl 100 mg tablet sustained-release 12 hr 100 mg PO QAM trazodone 50 mg Tablet 50 mg PO HS buspirone 10 mg Tablet 10 mg PO QAM memantine 5 mg Tablet 5 mg PO BID Glucosamine Chondroitin 550-30-1 mg Capsule 1 cap PO BID celecoxib [Celebrex] 200 mg capsule 200 mg PO Q12H PRN (Reason: pain) Qty: 30 0RF Discharge Orders: Discharge Order (Routine); Ordered 04/29/24 Ordered By: Henrique Huyhn Admission Data Admit Date/Time: 04/28/24 13:13 Attending Provider: Henrique Huynh Admit Provider: Henrique Huynh Primary Care Provider: Ger Contreras Other Providers: [facility],[employer]
[2024-04-29] MEDS: ATORVASTATIN 10 MG TAB PO SCH (07:53)
[2024-04-29] MEDS: dexAMETHasone 4 MG TAB PO SCH (07:53)
[2024-04-29] MEDS: busPIRone 5 MG TAB PO SCH (07:53)
[2024-04-29] MEDS: TAMSULOSIN HCL 0.4 MG CAP PO SCH (07:53)
[2024-04-29] MEDS: buPROPion SR 100 MG TABCR PO SCH (07:53)
[2024-04-29] MEDS: MULTIVITAMIN TAB PO SCH (07:54)
[2024-04-29 08:28] VITALS: BP 130/72; PULSE 56; RESP 14; O2SAT 98
== END 2024-04-29 11:08 | disposition home or self-care (01) ==
LOC: ASU 08:42 → 3E 08:42

== ENCOUNTER 2025-03-14 08:01 | Inpatient (IN) ==
[2025-03-14 08:50] LABS: Hematocrit (blood only) 40.5 % (42.0-52.0); Hemoglobin 14.1 g/dL (14.0-18.0); Mean Corpuscular Hemoglobin 31.8 pg (25.0-34.0); Mean Corpuscular Volume 91.2 fL (80.0-100.0); Platelet Count 172 K/uL (130-400); RDW Standard Deviation 43.3 fL (36.4-46.3); Red Blood Count 4.44 M/uL (4.70-6.10); White Blood Count 12.83 K/ul (4.8-10.8)
[2025-03-14 09:08] LABS: Anion Gap 10.0 (3-11); Blood Urea Nitrogen 27.0 mg/dl (6-23); Calcium 9.4 mg/dl (8.6-10.3); Carbon Dioxide 24.0 mmol/L (21-32); Chloride 102.0 mmol/L (98-107); Creatinine Clr Calc Pharmacy 53.4 ml/min; Glucose 169.0 mg/dl (70-99(Fasting)); Potassium 3.9 mmol/L (3.5-5.1); Sodium 136.0 mmol/L (136-145)
--- NOTE | 2025-03-14 09:10 | Emergency Department Note ---
Impression & Plan Choledocholithiasis ED Provider Note Provider: Juan Jose Barahona MD CHIEF COMPLAINT: Abdominal pain, heartburn issues HISTORY OF PRESENT ILLNESS: Patient is a 85-year-old gentleman history of GERD on a PPI presenting here today reporting overnight since around 1230 1 in the morning developed significant upper abdominal pain little bit of lower abdominal discomfort and heartburn type symptoms. [place] nauseous as well. Did vomit. Things are improving a lot now but was a bit sweaty with this earlier. Has had several episodes over the last several months as well. Saw his outpatient medical providers over the last several weeks and had an ultrasound and MRI and was told he had some kind of stone and to follow-up on the of this month. Is feeling somewhat better now compared to previous. Did take a Tylenol this morning. PAST MEDICAL HISTORY: As noted above MEDICATIONS: Reviewed home medications SOCIAL HISTORY: lives at home, [employer] PHYSICAL EXAM: GENERAL: alert and oriented in no acute distress on stretcher Head: normocephalic and atraumatic EYES: No injection, discharge or icterus. NECK: Trachea midline. ENT: Mucous membranes pink and moist. LUNGS: Airway patent. No retractions. Breath sounds clear HEART: Regular rate and rhythm. No chest wall tenderness ABDOMEN: Soft some slight epigastric tenderness towards the umbilicus. No masses appreciable. SKIN: Acyanotic, warm, dry, without rashes EXTREMITIES: Without swelling, tenderness or deformity NEUROLOGICAL: No focal deficits. No aphasia. No facial droop or slurred speech. Normal strength and tone in the extremities. Sensation to gross touch normal. Ambulatory. EK bpm normal sinus rhythm no PVC. No acute ST segment elevation or depression with QTc 426. CONTINUOUS CARDIAC MONITORING: was ordered and showed a heart rate of 60s to 70s bpm in normal sinus rhythm Patient's laboratory studies and imaging reviewed. Differential includes Appendicitis, testicular torsion, infections, diverticulitis, UTI, obstruction, mesenteric ischemia, aortic pathology, inflammatory bowel disease, renal colic, PUD, pancreatitis, biliary pathology, hernia, volvulus, constipation, as well as other pathologies. IMPRESSION/MEDICAL DECISION MAKING: Patient well-appearing. Reports 3-4 out of 10 pain currently. Has had some outpatient workup. States his liver functions were off in the past. With assistance of case management accessed outpatient records and had ultrasound as well as MRCP showing evidence of choledocholithiasis with a almost 10 mm stone and some bile duct dilatation. Was scheduled for outpatient follow-up regarding this. Sounds acute flareup overnight. Is improving some now. EKG and troponin were sent however to exclude other pathology such as ACS. Fairly benign abdomen on exam without masses and doubt perforation, diverticulitis, or colitis. Will obtain a focused ultrasound of the gallbladder region to evaluate for inflammatory changes there currently. He declines pain medicines on initial evaluation. Blood work here without anemia but mild leukocytosis of 12.8. No severe electrolyte abnormalities or renal dysfunction noted today. LFTs and lipase returned with moderate elevations bilirubin 4.4, AST 133, ALT 210, alkaline phosphatase 205, lipase 658. Discussed with the patient. At this time recommend we bring him into the hospital and have further evaluation by GI for possible ERCP. Do not believe he is septic or suffering from acute cholangitis at this time. Certainly to be at risk to decline however. Ultrasound without evidence of acute cholecystitis. Patient states his pain is improving some. The [facility] outpatient record difficult to find full LFTs to compare to. Given his pain however with the elevated lipase and symptoms did recommend him bring him in for GI evaluation and possible ERCP. He was agreeable with this. Hospitalist was consulted. DIAGNOSIS: Choledocholithiasis, abdominal pain DISPOSITION: Hospitalist will evaluate Patient was agreeable with this plan. Past Med/Surg History Problem List Acute pancreatitis Choledocholithiasis (Acute) Status post left knee replacement (~03/2024) Osteoarthritis of left knee S/p reverse total shoulder arthroplasty Encounter for pre-operative examination Rotator cuff arthropathy of left shoulder Tendinitis of left rotator cuff Rotator cuff tear, right Sleep apnea Back problem Arthritis Status post hernia repair 2014, Open Right Inguinal Hernia Repair with Mesh Medical History HTN (hypertension) Aortic root enlargement History of vertigo Sinus bradycardia Memory problem Insomnia Arthritis BPH (benign prostatic hyperplasia) GERD (gastroesophageal reflux disease) Migraine History of skin cancer Borderline high cholesterol Sleep apnea Surgical History S/p reverse total shoulder arthroplasty History of lumbar surgery H/O prostate biopsy History of colonoscopy History of tooth extraction History of ear surgery S/P umbilical hernia repair, follow-up exam Family History Other No family history of adverse response to anesthesia Social History Smoking Status: Former smoker Tobacco Type: Cigarettes Smoking End Date: 40 years ago; Second Hand Exposure: No; Do You Dip or Chew Tobacco: No; Tobacco Cessation Education Requested by Patient: No Hx Alcohol Use: Yes Alcohol type: beer Alcohol Intake Frequency: 4 or More x per/Week Hx Substance Use: No Preferred Language: Kosovan 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 Beliefs That Will Affect Care: None marital status: Current Living Situation: Spouse Current Living Situation Comment: current occupation: [employer] How many Children do You have: 4 Other Information That Helps Us Care for You: No Feels Safe at Home: Yes Safety Concerns: Feels Safe At This Time Assistive Devices: Cane and Walker Allergies Allergies Allergy/AdvReac Type Severity Reaction Status Date / Time poison whit extract Allergy Intermediate Rash, Skin Verified 04/28/24 09:24 Blistering poison oak extract Allergy Intermediate Rash, Skin Verified 04/28/24 09:24 Blistering Penicillins Allergy Mild Rash Verified 04/28/24 09:24 Home Meds Home Medications Medication Instructions Recorded Confirmed atorvastatin 10 mg tablet 10 mg PO QAM 01/29/20 03/14/25 tamsulosin 0.4 mg capsule 0.4 mg PO QAM 01/29/20 03/14/25 bupropion HCl 100 mg tablet,12 hr 0 mg PO QAM 06/19/21 03/14/25 sustained-release buspirone 10 mg tablet 10 mg PO UD 05/28/23 03/14/25 glucosamine sulf dipot 1 cap PO BID 05/28/23 03/14/25 chlr,msm,chond 550 mg-C 30 mg-michoacano 1 mg capsule (Glucosamine Chondroitin) memantine 5 mg tablet 5 mg PO BID 05/28/23 03/14/25 trazodone 50 mg tablet 50 mg PO HS 05/28/23 03/14/25 celecoxib 200 mg capsule (Celebrex) 0 mg PO Q12H PRN pain 03/14/25 03/14/25 finasteride 5 mg tablet 5 mg PO DAILY 03/14/25 03/14/25 ketoconazole 2 % shampoo 1 applic topical UD 03/14/25 03/14/25 omeprazole 40 mg capsule,delayed 40 mg PO DAILY 03/14/25 03/14/25 release Previous Rx's Medication Instructions Recorded oxycodone 5 mg tablet 5 mg PO Q6H PRN pain #30 tabs 06/30/24 Results & Data (ED) Vital Signs Vital Signs - 24 hr 03/14/25 08:12 03/14/25 08:43 03/14/25 08:43 Temperature 36.6 C Temperature Source Temporal Artery Scan Pulse Rate 74 75 Pulse Rate from SpO2 Sensor Respiratory Rate 20 Respiratory Effort / Characteristics Non-Labored Spontaneous Respiratory Depth Normal Blood Pressure 169/67 H Blood Pressure Mean 101 Pulse Oximetry 96 94 Oxygen Delivery Method Room Air Room Air Sepsis Recent Fever Within 48 Hours No Sepsis New/Unexplained Change in Mental Status N/A Sepsis Action Taken by Nursing No Action Required 03/14/25 08:51 03/14/25 09:00 03/14/25 10:00 Temperature Temperature Source Pulse Rate 76 73 67 Pulse Rate from SpO2 Sensor Respiratory Rate 20 18 18 Respiratory Effort / Characteristics Respiratory Depth Blood Pressure 139/73 139/71 141/70 H Blood Pressure Mean 95 93 93 Pulse Oximetry 94 95 97 Oxygen Delivery Method Room Air Room Air Room Air Sepsis Recent Fever Within 48 Hours Sepsis New/Unexplained Change in Mental Status Sepsis Action Taken by Nursing 03/14/25 10:21 Temperature Temperature Source Pulse Rate 67 Pulse Rate from SpO2 Sensor 67 Respiratory Rate 14 Respiratory Effort / Characteristics Respiratory Depth Blood Pressure Blood Pressure Mean Pulse Oximetry 98 Oxygen Delivery Method Sepsis Recent Fever Within 48 Hours Sepsis New/Unexplained Change in Mental Status Sepsis Action Taken by Nursing Laboratory Data 03/14/25 08:36 03/14/25 08:36 Lab Results 03/14/25 03/14/25 Range/Units 08:36 08:43 WBC 12.83 H (4.8-10.8) K/ul RBC 4.44 L (4.70-6.10) M/uL Hgb 14.1 (14.0-18.0) g/dL POC Hgb 14.3 (14.0-18.0) g/dl Hct 40.5 L (42.0-52.0) % POC Hct 42 (42-52) % MCV 91.2 (80.0-100.0) fL MCH 31.8 (25.0-34.0) pg MCHC 34.8 (32.0-36.0) g/dL RDW Std Deviation 43.3 (36.4-46.3) fL RDW Coeff of Veronique 13.0 (11.5-14.5) % Plt Count 172 (130-400) K/uL MPV 9.2 L (9.4-12.4) fL Immature Gran % (Auto) 0.6 % Neut % (Auto) 90.9 % Lymph % (Auto) 1.8 % [place] % (Auto) 6.5 % Eos % (Auto) 0.0 % Baso % (Auto) 0.2 % Neut # (Auto) 11.66 H (1.40-6.50) K/uL Lymph # (Auto) 0.23 L (1.20-3.40) K/uL [place] # (Auto) 0.84 H (0.11-0.59) K/uL Eos # (Auto) 0.00 (0.00-0.50) K/uL Baso # (Auto) 0.02 (0.00-0.20) K/uL Immature Gran # (Auto) 0.08 (0.01-0.20) K/uL PT 10.0 (9.0-12.0) Seconds INR 0.9 (0.9-1.1) POC Sodium 137 (135-144) mmol/L Sodium 136 (136-145) mmol/L POC Potassium 3.8 (3.3-5.0) mmol/L Potassium 3.9 (3.5-5.1) mmol/L POC Chloride 102 (101-112) mmol/L Chloride 102 (98-107) mmol/L Carbon Dioxide 24 (21-32) mmol/L POC Total CO2 21 L (24-31) mmol/L Anion Gap 10 (3-11) POC Anion Gap 19.0 (16-25) mmol/L POC BUN 27 H (7-18) mg/dl BUN 27 H (6-23) mg/dl Creatinine 1.02 (0.6-1.4) mg/dl POC Creatinine 1.0 (0.6-1.3) mg/dl Est Cr Clr Drug Dosing 53.4 ml/min eGFR 72.92 BUN/Creatinine Ratio 26.5 H (10-20) Glucose 169 H (70-99(Fasting)) mg/dl POC Glucose (other) 160 H (70-99) mg/dl Calcium 9.4 (8.6-10.3) mg/dl POC Ioniz Calcium Norma 1.14 (1.12-1.32) mmol/l Total Bilirubin 4.4 H (0.2-1.0) mg/dl AST 133 H (13-39) U/L ALT 210 H (7-52) U/L Alkaline Phosphatase 205 H (34-104) U/L Troponin I High Sens 7.3 (0-20) pg/ml Total Protein 6.9 (6.0-8.3) gm/dl Albumin 4.3 (3.4-5.0) gm/dl Globulin 2.6 (2.5-4.0) gm/dl Albumin/Globulin Ratio 1.7 (0.9-2) Lipase 658 H (11-82) U/L Vitamin B12 354 (180-914) pg/ml Administered Medications Lactated Ringer's (Lr) 1,000 mls @ 80 mls/hr IV .[id number] TEODORO Stop: 03/15/25 00:00 Last Infusion: 03/14/25 14:25 Dose: 0 mls/hr Documented By: Admin: 03/14/25 10:51 Dose: 80 mls/hr Documented By: MSG Discontinued Medications Piperacillin Sod/Tazobactam Sod (Zosyn) 4.5 gm in 100 mls @ 200 mls/hr IV NOW STA; Protocol Stop: 03/14/25 11:45 Last Infusion: 03/14/25 13:19 Dose: Infused Documented By: [facility] Admin: 03/14/25 11:30 Dose: 200 mls/hr Documented By: nrs Imaging Data Radiologist's Impression: Gallbladder Ultrasound 03/14/25 09:02 ULTRASOUND RIGHT UPPER QUADRANT ABDOMEN CLINICAL HISTORY: Right upper quadrant abdominal pain. COMPARISON STUDY: No priors TECHNIQUE: Real-time, grayscale, and color flow sonography of the right upper quadrant of the abdomen was performed. Images are reviewed in the transverse and longitudinal planes. FINDINGS: Liver: The liver is normal in size and echotexture. There is no intrahepatic biliary ductal dilatation. The main portal vein is patent. Gallbladder: There are gallstones and biliary sludge. There is no gallbladder wall thickening or pericholecystic fluid. A sonographic Simmons's sign is reportedly absent. The common bile duct measures up to 0.8 cm in diameter. Pancreas: Visualized portions of the pancreatic head and body are normal in appearance. Right kidney: Survey images of the right kidney demonstrate normal size and echotexture. There is no hydronephrosis. Ascites: None. IMPRESSION: Cholelithiasis without sonographic evidence of acute cholecystitis. ACT 112: Negative or not required by law. Electronically signed by: Bernabe Sandoval M.D. 03/14/2025 10:01 AM Discharge Plan Visit Data Chief Complaint: GI Assessment Stated Complaint: GERD ED Provider: Juan Jose Barahona Discharge Problem: Choledocholithiasis Patient Disposition: Admitted As Inpatient Condition: Fair Discharge Instructions Interventions: ED Discharge Assessment Last Done: 03/14/25 12:29
[2025-03-14 09:11] LABS: Immature Granulocytes # (auto) 0.08 K/uL (0.01-0.20); Immature Granulocytes % (auto) 0.6 %
[2025-03-14 09:20] LABS: INR 0.9 (0.9-1.1); Prothrombin Time 10.0 Seconds (9.0-12.0)
[2025-03-14 09:30] LABS: Alanine Aminotransferase 210.0 U/L (7-52); Albumin Globulin Ratio 1.7 (0.9-2); Albumin Level 4.3 gm/dl (3.4-5.0); Alkaline Phosphatase 205.0 U/L (34-104); Bilirubin,Total 4.4 mg/dl (0.2-1.0); Globulin 2.6 gm/dl (2.5-4.0); Lipase 658.0 U/L (11-82); Total Protein 6.9 gm/dl (6.0-8.3)
--- NOTE | 2025-03-14 10:03 | Ultrasound Report ---
ULTRASOUND RIGHT UPPER QUADRANT ABDOMEN CLINICAL HISTORY: Right upper quadrant abdominal pain. COMPARISON STUDY: No priors TECHNIQUE: Real-time, grayscale, and color flow sonography of the right upper quadrant of the abdomen was performed. Images are reviewed in the transverse and longitudinal planes. FINDINGS: Liver: The liver is normal in size and echotexture. There is no intrahepatic biliary ductal dilatatio n. The main portal vein is patent. Gallbladder: There are gallstones and biliary sludge. There is no gallbladder wall thickening or yessenia cholecystic fluid. A sonographic Simmons's sign is reportedly absent. The common bile duct measures up to 0.8 cm in diameter. Pancreas: Visualized portions of the pancreatic head and body are normal in appearance. Right kidney: Survey images of the right kidney demonstrate normal size and echotexture. There is no hydronephrosis. Ascites: None. IMPRESSION: Cholelithiasis without sonographic evidence of acute cholecystitis. ACT 112: Negative or not required by law. Electronically signed by: Bernabe Sandoval M.D. 03/14/2025 10:01 AM
[2025-03-14] MEDS ORDERED: ONDANSETRON INJ 2 MG/ML 2 ML VIAL IV PRN (10:25)
[2025-03-14] MEDS ORDERED: POLYETHYLENE (MIRALAX) 17 GM PACK PO PRN (10:25)
--- NOTE | 2025-03-14 10:36 | History & Physical Report ---
Date of Service March 14, 2025 Assessment & Plan (1) Acute pancreatitis: (2) Choledocholithiasis: (3) HTN (hypertension): (4) Aortic root enlargement: (5) Insomnia: (6) Arthritis: (7) BPH (benign prostatic hyperplasia): (8) GERD (gastroesophageal reflux disease): Plan 85 yo male with pmhx of choledocolithiasis (MRCP 12/9 with 9.8mm stone), ascending aortic anurysm, MARY on CPAP, HTN, HLD, BPH, RLS, osteoarthritis, ADD, ALOK, insomnia who presents for nausea, vomiting, and abdominal pain 2/2 choledocolithiasis vs. less likely cholangitis. #Acute Choledocholithiasis #Acute Pancreatitis -had recent MRCP showing large biliary duct dilatation and stones (see above) -worsening symptoms over past 2 weeks -AST/ALT/lipase elevations with nausea, vomiting, RUQ/epigastric pain confirm above -differential includes choledocholithiasis, ascending cholangitis (hemodynamic stability makes less likely but possible), cholecystitis (less likely given US findings) Plan: -GI consult, appreciate recs, likely ERCP this afternoon -start zosyn (in case of cholangitis, less likely) -start LR at 80cc/hr -NPO until after procedure -continue omeprazole #MARY -ordered home CPAP #Ascending Abdominal Aneurysm -f/u outpatient #HTN #HLD -continue atorvastatin #BPH -continue finasteride, tamsulosin #ALOK #ADD #RLS #Insomnia -continue trazodone, buspar, memantine I spent a total of 80 minutes in direct patient care, including [id number] time with the patient and/or family, reviewing medical records, ordering and reviewing diagnostic tests, and coordinating care with other healthcare providers. This time includes: history taking, physical examination, medical decision making, counseling, ECG interpretation, imaging interpretation, lab interpretation, orders, and education, excluding time spent in the performance of separately billed services. History of Present Illness Chief Complaint: -nausea, vomiting, abdominal pain Primary Care Provider: Ger Contreras MD 85 yo male with pmhx of choledocolithiasis (MRCP 12/9 with 9.8mm stone), ascending aortic anurysm, MARY on CPAP, HTN, HLD, BPH, RLS, osteoarthritis, ADD, ALOK, insomnia who presents for nausea, vomiting, and abdominal pain. Last admission was in 2023 for left total knee arthroplasty. Of note, had MRCP on 03/06/2025 with the following read: GALLBLADDER/BILE DUCTS: Cholelithiasis. No gallbladder wall thickening. Multiple choledocholithiasis are visualized. The largest measures 9.8 mm (image 21 series 4). Common bile duct measures 8.8 mm. Mild dilatation of the central intrahepatic biliary ducts. There is no pancreatic ductal dilatation. Patient seen and examined at bedside. Patient doing ok today. This morning began having nausea and vomiting. Has been having increased bouts of vomiting over the past 2 weeks. He states that he has some mild RUQ pain and trace epigastric pain. Otherwise, denies chest pain, SOB, swelling in legs, other associated symptoms. 2 beers per night alcohol use, denies tobacco and drug use, DNRDNI (ok with pressors and all other measures up until ) discussed with patient. Allergies Allergy/AdvReac Type Severity Reaction Status Date / Time poison whit extract Allergy Intermediate Rash, Skin Verified 04/28/24 09:24 Blistering poison oak extract Allergy Intermediate Rash, Skin Verified 04/28/24 09:24 Blistering Penicillins Allergy Mild Rash Verified 04/28/24 09:24 Home Medications Medication Instructions Recorded Confirmed Type atorvastatin 10 mg tablet 10 mg PO QAM 01/29/20 03/14/25 History tamsulosin 0.4 mg capsule 0.4 mg PO QAM 01/29/20 03/14/25 History bupropion HCl 100 mg tablet,12 hr 0 mg PO QAM 06/19/21 03/14/25 History sustained-release buspirone 10 mg tablet 10 mg PO UD 05/28/23 03/14/25 History glucosamine sulf dipot 1 cap PO BID 05/28/23 03/14/25 History chlr,msm,chond 550 mg-C 30 mg-michoacano 1 mg capsule (Glucosamine Chondroitin) memantine 5 mg tablet 5 mg PO BID 05/28/23 03/14/25 History trazodone 50 mg tablet 50 mg PO HS 05/28/23 03/14/25 History oxycodone 5 mg tablet 5 mg PO Q6H PRN pain #30 tabs 06/30/24 03/14/25 Rx celecoxib 200 mg capsule (Celebrex) 0 mg PO Q12H PRN pain 03/14/25 03/14/25 History finasteride 5 mg tablet 5 mg PO DAILY 03/14/25 03/14/25 History ketoconazole 2 % shampoo 1 applic topical UD 03/14/25 03/14/25 History omeprazole 40 mg capsule,delayed 40 mg PO DAILY 03/14/25 03/14/25 History release Past Med/Surg History Problem List Acute pancreatitis Choledocholithiasis Status post left knee replacement (~03/2024) Osteoarthritis of left knee S/p reverse total shoulder arthroplasty Encounter for pre-operative examination Rotator cuff arthropathy of left shoulder Tendinitis of left rotator cuff Rotator cuff tear, right Sleep apnea Back problem Arthritis Status post hernia repair 2014, Open Right Inguinal Hernia Repair with Mesh Medical History HTN (hypertension) Aortic root enlargement History of vertigo Sinus bradycardia Memory problem Insomnia Arthritis BPH (benign prostatic hyperplasia) GERD (gastroesophageal reflux disease) Migraine History of skin cancer Borderline high cholesterol Sleep apnea Surgical History S/p reverse total shoulder arthroplasty History of lumbar surgery H/O prostate biopsy History of colonoscopy History of tooth extraction History of ear surgery S/P umbilical hernia repair, follow-up exam Family History Other No family history of adverse response to anesthesia Social History Smoking Status: Unknown if ever smoked Tobacco Type: Cigarettes Second Hand Exposure: No; Do You Dip or Chew Tobacco: No (quit in his 20's, only chewed for short time); Hx Alcohol Use: Yes Alcohol type: beer Alcohol Intake Frequency: 4 or More x per/Week Hx Substance Use: No Preferred Language: Portuguese Communication Ability: Effective Checker Product Design Required: No Beliefs That Will Affect Care: None marital status: Current Living Situation: Spouse current occupation: [employer] How many Children do You have: 4 Feels Safe at Home: Yes Assistive Devices: Cane and Walker Review of Systems Review of Systems: -negative unless listed above Physical Exam Physical Exam: Gen: A&O 3 NAD HEENT: NCAT, EOMI, not icteric. External ears normal. No rhinorrhea. Moist mucous membranes. Neck: Supple, full range of motion, no observable masses, No meningeal sign. Lungs: No Respiratory distress. CV: RRR, no edema. Abdomen: mild tenderness to palpation in RUQ and epigastric region MSK: No joint swelling, no redness. Skin: No rashes, petechiae, lesions. Normal color per patient. Neuro: Normal Gait, Grossly intact. Psych: Appropriate for situation. Results & Data Results & Data Vital Signs (Past 12 Hours) Vital Signs Temp Pulse Resp BP Pulse Ox O2 Del Method 03/14/25 10:00 67 18 141/70 H 97 Room Air 03/14/25 09:00 73 18 139/71 95 Room Air 03/14/25 08:51 76 20 139/73 94 Room Air 03/14/25 08:43 75 03/14/25 08:43 94 Room Air 03/14/25 08:12 36.6 C 74 20 169/67 H 96 Room Air Laboratory Results -personally reviewed, elevated lipase/LFTs consistent with acute choledocolithiasis, leukocytosis concerning for developing cholangitis, creat inine at baseline Medications Administered Lactated Ringer's (Lr) 1,000 mls @ 80 mls/hr IV .[id number] TEODORO Stop: 03/15/25 00:00 Last Admin: 03/14/25 10:51 Dose: 80 mls/hr Documented By: MSG Code Status & VTE Plan Code Status -DNRDNI (ok with pressors and all other life sustaining measures up until or requiring intubation)
[2025-03-14] MEDS: LACTATED RINGER'S 1,000 ML IV SCH (10:51)
[2025-03-14] MEDS ORDERED: MEROPENEM 500 MG in SYRINGE 0 ML IV SCH (11:00)
--- NOTE | 2025-03-14 11:25 | Gastrointestinal Consultation ---
Date of Consultation March 14, 2025 Assessment & Plan (1) Choledocholithiasis: Plan Patient with complaints of nauesa, vomiting, abdominal pain, and acid reflux. He had elevated LFTs and recent imaging suggestive of choledocholithiasis. He reports sweats and chills last evening and has an elevated wbc raising concern for possible cholangitis. Case discussed with Dr. Escobar. - will plan for ERCP later today for further evaluation. - keep NPO. - will continue to follow and trend labs. - Further recommendation to follow. Supervising Physician Co-Signing Physician Notes Months of intermittent abdominal pain epigastric discomfort. Now with increased liver test. He had an MRCP as an outpatient on March 06 which showed common duct stones. Last evening increased pain with vomiting some chills as slight elevation in his lipase at 600. Benign abdomen. Stable vitals. Currently afebrile does have an elevated white count. Gentleman as document common duct stones. Him a little concerned about the chills last evening and symptoms on and off for months certainly at risk of cholangitis. Clinically his pancreatitis is mild. Based on these factors we will proceed with ERCP today. Reviewed with patient risks and benefits of the procedure including bleeding perforation pancreatitis and cholangitis. Informed consent obtained. History of Present Illness Reason for Consultation: acute choledocholithiasis Requesting Physician: Nirav Alcazar MD History of Present Illness Patient is an 85 year old male with a past medical history of GERD who presented to the ED this morning with complaints of significant epigastric pain, nausea, and emesis. He notes that he has had symptoms like this off and on for years. He also reports a history of acid reflux and tells me he has always chalked his symptoms up to this though he uses omeprazole 40mg once daily. he does not note a change in his symptoms with foods or liquids. He did have some coffee and water around 8 am this morning and seemed to tolerate this. Last episode of emesis was about 1 am. He notes that this was mostly liquid. He admits that he did have chills last evening with sweating. He did not take his temperature. he reportedly had an MRCP on 03/06/2025 with the following read per hospitalist H&P: GALLBLADDER/BILE DUCTS: Cholelithiasis. No gallbladder wall thickening. Multiple choledocholithiasis are visualized. The largest measures 9.8 mm (image 21 series 4). Common bile duct measures 8.8 mm. Mild dilatation of the central intrahepatic biliary ducts. There is no pancreatic ductal dilatation. the rest of the GI ros are unremarkable. 03/14/25 wbc 12.83, hgb 14.1, hct 40.5, plts 172, INR 0.9, Na 136, K 3.9, BUN 27, Cr 1.02, T bili 4.4, AST 133, ALT 210, ALK 205, lipase 658. 03/14/25 US - Cholelithiasis without sonographic evidence of acute cholecystitis. Allergies Allergy/AdvReac Type Severity Reaction Status Date / Time poison whit extract Allergy Intermediate Rash, Skin Verified 04/28/24 09:24 Blistering poison oak extract Allergy Intermediate Rash, Skin Verified 04/28/24 09:24 Blistering Penicillins Allergy Mild Rash Verified 04/28/24 09:24 Home Medications Medication Instructions Recorded Confirmed Type atorvastatin 10 mg tablet 10 mg PO QAM 01/29/20 03/14/25 History tamsulosin 0.4 mg capsule 0.4 mg PO QAM 01/29/20 03/14/25 History bupropion HCl 100 mg tablet,12 hr 0 mg PO QAM 06/19/21 03/14/25 History sustained-release buspirone 10 mg tablet 10 mg PO UD 05/28/23 03/14/25 History glucosamine sulf dipot 1 cap PO BID 05/28/23 03/14/25 History chlr,msm,chond 550 mg-C 30 mg-michoacano 1 mg capsule (Glucosamine Chondroitin) memantine 5 mg tablet 5 mg PO BID 05/28/23 03/14/25 History trazodone 50 mg tablet 50 mg PO HS 05/28/23 03/14/25 History oxycodone 5 mg tablet 5 mg PO Q6H PRN pain #30 tabs 06/30/24 03/14/25 Rx celecoxib 200 mg capsule (Celebrex) 0 mg PO Q12H PRN pain 03/14/25 03/14/25 History finasteride 5 mg tablet 5 mg PO DAILY 03/14/25 03/14/25 History ketoconazole 2 % shampoo 1 applic topical UD 03/14/25 03/14/25 History omeprazole 40 mg capsule,delayed 40 mg PO DAILY 03/14/25 03/14/25 History release Patient History Medical History HTN (hypertension) Aortic root enlargement History of vertigo Sinus bradycardia Memory problem Insomnia Arthritis BPH (benign prostatic hyperplasia) GERD (gastroesophageal reflux disease) Migraine History of skin cancer Borderline high cholesterol Sleep apnea Surgical History S/p reverse total shoulder arthroplasty History of lumbar surgery H/O prostate biopsy History of colonoscopy History of tooth extraction History of ear surgery S/P umbilical hernia repair, follow-up exam Family History Other No family history of adverse response to anesthesia Social History Smoking Status: Former smoker Tobacco Type: Cigarettes Smoking End Date: 40 years ago; Second Hand Exposure: No; Do You Dip or Chew Tobacco: No; Tobacco Cessation Education Requested by Patient: No Hx Alcohol Use: Yes Alcohol type: beer Alcohol Intake Frequency: 4 or More x per/Week Hx Substance Use: No Preferred Language: [place] Communication Ability: Effective Grain Unloader Machine Required: No Beliefs That Will Affect Care: None marital status: Current Living Situation: Spouse Current Living Situation Comment: current occupation: [employer] How many Children do You have: 4 Other Information That Helps Us Care for You: No Feels Safe at Home: Yes Safety Concerns: Feels Safe At This Time Assistive Devices: Cane and Walker Review of Systems Review of Systems: All systems reviewed & are unremarkable except as noted in HPI & below Physical Exam Constitutional: WD/WN, vitals as above Respiratory: normal respiratory effort, lungs clear to auscultation Cardiovascular: Rate/Rhythm: regular rate and regular rhythm Gastrointestinal (Abdomen): normal bowel sounds, soft, nontender, no hepatosplenomegaly Psychiatric: Orientation: alert and oriented x 3 Affect: euthymic affect Results & Data Vital Signs (Past 12 Hours) Vital Signs Temp Pulse Resp BP Pulse Ox O2 Del Method 03/14/25 10:00 67 18 141/70 H 97 Room Air 03/14/25 09:00 73 18 139/71 95 Room Air 03/14/25 08:51 76 20 139/73 94 Room Air 03/14/25 08:43 75 12/17/25 08:43 94 Room Air 03/14/25 08:12 97.9 F 74 20 169/67 H 96 Room Air Coding Level of Care Code 40714 INT INP/OBS CARE MIN Diagnoses Choledocholithiasis K80.50
[2025-03-14] MEDS: 4.5GM X1 IV STA (11:30)
[2025-03-14 11:53] LABS: Appearance Urine Clear (Clear)
--- NOTE | 2025-03-14 13:41 | Anesthesiology Consultation ---
Date of Service March 14, 2025 Assessment & Plan Chart Review Chart Review: Acceptable Risk for Surgery Consults Requested none ASA ASA3 Proposed Anesthesia Anesthesia Type: General Risk / Benefits Reviewed With: PT / POA / Parent / Guardian, Accepts Plan and Informed Consent Obtained History Surgery Operation Date: 03/14/25 10:30 Proposed Procedures p Endoscopic Retrograde Cholangiopancreatogram - Abel Escobar MD Height/Weight Height: 5 ft 4 in Weight: 81.42 kg Allergies Allergy/AdvReac Type Severity Reaction Status Date / Time poison whit extract Allergy Intermediate Rash, Skin Verified 04/28/24 09:24 Blistering poison oak extract Allergy Intermediate Rash, Skin Verified 04/28/24 09:24 Blistering Penicillins Allergy Mild Rash Verified 04/28/24 09:24 Medications Home Medications Medication Instructions Recorded Confirmed Last Taken atorvastatin 10 mg tablet 10 mg PO QAM 01/29/20 03/14/25 04/28/24 06:00 tamsulosin 0.4 mg capsule 0.4 mg PO QAM 01/29/20 03/14/25 04/27/24 bupropion HCl 100 mg tablet,12 hr 0 mg PO QAM 06/19/21 03/14/25 04/28/24 06:00 sustained-release buspirone 10 mg tablet 10 mg PO UD 05/28/23 03/14/25 04/28/24 06:00 glucosamine sulf dipot 1 cap PO BID 05/28/23 03/14/25 04/20/24 chlr,msm,chond 550 mg-C 30 mg-michoacano 1 mg capsule (Glucosamine Chondroitin) memantine 5 mg tablet 5 mg PO BID 05/28/23 03/14/25 04/28/24 06:00 trazodone 50 mg tablet 50 mg PO HS 05/28/23 03/14/25 04/27/24 19:00 oxycodone 5 mg tablet 5 mg PO Q6H PRN pain #30 tabs 06/30/24 03/14/25 Unknown celecoxib 200 mg capsule (Celebrex) 0 mg PO Q12H PRN pain 03/14/25 03/14/25 Unknown finasteride 5 mg tablet 5 mg PO DAILY 03/14/25 03/14/25 Unknown ketoconazole 2 % shampoo 1 applic topical UD 03/14/25 03/14/25 Unknown omeprazole 40 mg capsule,delayed 40 mg PO DAILY 03/14/25 03/14/25 Unknown release Active Medications Generic Name Dose Route Start Last Admin Trade Name Yaritza PRN Reason Stop Dose Admin Lactated Ringer's 1,000 mls @ 80 mls/hr 03/14/25 10:30 03/14/25 10:51 Lr IV 03/15/25 00:00 80 mls/hr .[id number] TEODORO Administration NPO Date Last Intake of Fluids: 03/14/25 Time Last Intake of Fluids: 06:00 Date Last Intake of Solids: 03/13/25 Time Last Intake of Solids: 17:30 Past Medical History Medical History HTN (hypertension) Aortic root enlargement History of vertigo Sinus bradycardia Memory problem Insomnia Arthritis BPH (benign prostatic hyperplasia) GERD (gastroesophageal reflux disease) Migraine History of skin cancer Borderline high cholesterol Sleep apnea Past Family History Family History Other No family history of adverse response to anesthesia Past Surgical History Surgical History S/p reverse total shoulder arthroplasty History of lumbar surgery H/O prostate biopsy History of colonoscopy History of tooth extraction History of ear surgery S/P umbilical hernia repair, follow-up exam Social History Smoking Status: Former smoker Do You Dip or Chew Tobacco: No Smoking End Date: 40 years ago Hx Alcohol Use: Yes Alcohol type: beer alcohol intake frequency: 0-2 drinks per day Hx Substance Use: No substance use type: does not use Physical Exam Vital Signs Last Vital Signs Temp 36.7 C 03/14/25 13:22 Pulse 65 03/14/25 13:22 Resp 16 03/14/25 13:22 BP 138/67 03/14/25 13:22 Pulse Ox 97 03/14/25 13:22 O2 Del Method Room Air 03/14/25 13:22 Constitutional no acute distress ENMT Mouth: no TMJ abnormality Mallampati Class: II Neck + facial hair Respiratory normal respiratory effort Cardiovascular Rate/Rhythm: regular rate Musculoskeletal Spine: normal cervical ROM Extremities: extremities normal to inspection Neurologic moves all extremities Psychiatric Orientation: alert and oriented x 3 Testing Laboratory Results 03/14/25 08:36 03/14/25 08:36 PT 10.0 Seconds (9.0-12.0) 03/14/25 08:36 INR 0.9 (0.9-1.1) 03/14/25 08:36 Urine Color See Comment 03/14/25 11:22 Urine Appearance Clear (Clear) 03/14/25 11:22 Urine pH Not Reportable 03/14/25 11:22 Ur Specific [place] 1.023 (1.000-1.030) 03/14/25 11:22 Urine Protein Not Reportable 03/14/25 11:22 Urine Glucose (UA) Not Reportable 03/14/25 11:22 Urine Ketones Not Reportable 03/14/25 11:22 Urine Nitrite Not Reportable 03/14/25 11:22 Ur Leukocyte Esterase Not Reportable 03/14/25 11:22 Urine RBC 3-5 /hpf (0-2) H 03/14/25 11:22 Urine WBC 0-5 /hpf (0-5) 03/14/25 11:22 Ur Epithelial Cells 3-5 /hpf (0-2) H 03/14/25 11:22 03/14/25 08:43 POC Glucose (other) 160 H
[2025-03-14] MEDS ORDERED: DEXAMETHASONE SOD INJ 4 MG/ML VIAL ONE (13:43)
[2025-03-14] MEDS ORDERED: ROCURONIUM BROMIDE 10 MG/ML 5 ML VIAL IV ONE (13:43)
[2025-03-14] MEDS ORDERED: ONDANSETRON INJ 2 MG/ML 2 ML VIAL ONE (13:43)
[2025-03-14] MEDS ORDERED: LIDOCAINE 2% 2 ML VIAL/AMP(20MG/ML) INFIL ONE (13:43)
[2025-03-14] MEDS ORDERED: PROPOFOL IV EMULSION 10 MG/ML 20 ML VIAL IV ONE (13:43)
[2025-03-14] MEDS ORDERED: GLYCOPYRROLATE 0.2 MG/ML VIAL ONE (13:43)
[2025-03-14] MEDS ORDERED: SUGAMMADEX SODIUM 200 MG/2 ML VIAL IV ONE (13:44)
--- NOTE | 2025-03-14 15:02 | Communication Note ---
Date of Service: March 14, 2025 ERCP Duodenal diverticulum. Ampulla or apparatus within the duodenal diverticulum. Everted using sphincterotome. Deep cannulation common bile duct. 2 filling defects identified. Biliary sphincterotomy, balloon dilatation of ampullary apparatus and balloon sweep of the bile duct. Stones extracted into the duodenum. Also appeared to be some early pus within the biliary tree consistent with cholangitis. Duct swept x 2 post no further stone material. Duct. Be draining well. Common duct stones. Early cholangitis. Clear liquids today. Recheck liver tests and lipase tomorrow. Continue IV antibiotics.
--- NOTE | 2025-03-14 15:31 | Anesthesiology Progress Note ---
Date of Service March 14, 2025 Anesthesia Post Procedure Vital Signs Vital Signs: Temp Pulse Pulse Pulse Resp BP BP 03/14/25 15:25 36.5 C 59 L 16 119/60 03/14/25 15:15 63 16 113/58 L 03/14/25 15:05 36.9 C 70 18 127/61 03/14/25 13:22 36.7 C 65 16 138/67 03/14/25 12:51 36.5 C 64 16 146/78 H 03/14/25 12:29 03/14/25 12:00 68 16 132/70 03/14/25 12:00 132/70 03/14/25 12:00 132/70 03/14/25 12:00 132/70 03/14/25 12:00 132/70 03/14/25 12:00 68 19 03/14/25 11:51 70 20 03/14/25 11:42 74 23 03/14/25 11:30 70 22 03/14/25 11:30 68 20 127/79 03/14/25 11:30 127/79 03/14/25 11:30 127/79 03/14/25 11:30 127/79 03/14/25 11:30 127/79 03/14/25 11:22 140/66 03/14/25 11:22 140/66 03/14/25 11:22 140/66 03/14/25 11:22 140/66 03/14/25 11:12 67 23 03/14/25 11:00 131/65 03/14/25 11:00 131/65 03/14/25 11:00 131/65 03/14/25 11:00 131/65 03/14/25 11:00 131/65 03/14/25 11:00 70 18 03/14/25 10:51 68 15 03/14/25 10:42 68 20 03/14/25 10:30 138/73 03/14/25 10:30 138/73 03/14/25 10:30 138/73 03/14/25 10:30 138/73 03/14/25 10:30 138/73 03/14/25 10:30 69 15 03/14/25 10:21 67 14 03/14/25 10:00 67 18 141/70 H 03/14/25 09:00 73 18 139/71 03/14/25 08:51 76 20 139/73 03/14/25 08:43 75 03/14/25 08:43 03/14/25 08:12 36.6 C 74 20 169/67 H Pulse Ox O2 Del Method O2 Flow Rate 03/14/25 15:25 94 Room Air 03/14/25 15:15 97 Room Air 03/14/25 15:05 98 Oxymask 6 03/14/25 13:22 97 Room Air 03/14/25 12:51 97 Room Air 03/14/25 12:29 Room Air 03/14/25 12:00 97 03/14/25 12:00 03/14/25 12:00 03/14/25 12:00 03/14/25 12:00 03/14/25 12:00 96 03/14/25 11:51 96 03/14/25 11:42 97 03/14/25 11:30 97 03/14/25 11:30 98 03/14/25 11:30 03/14/25 11:30 03/14/25 11:30 03/14/25 11:30 03/14/25 11:22 03/14/25 11:22 03/14/25 11:22 03/14/25 11:22 03/14/25 11:12 98 03/14/25 11:00 03/14/25 11:00 03/14/25 11:00 03/14/25 11:00 03/14/25 11:00 03/14/25 11:00 96 03/14/25 10:51 97 03/14/25 10:42 98 03/14/25 10:30 03/14/25 10:30 03/14/25 10:30 03/14/25 10:30 03/14/25 10:30 03/14/25 10:30 98 03/14/25 10:21 98 03/14/25 10:00 97 Room Air 03/14/25 09:00 95 Room Air 03/14/25 08:51 94 Room Air 03/14/25 08:43 03/14/25 08:43 94 Room Air 03/14/25 08:12 96 Room Air Pain Intensity Abdomen: Pain Intensity: 2 Transfer of Care Handoff Completed per policy Notes Mental Status: alert / awake / arousable Patient Amnestic to Procedure: Yes Nausea / Vomiting: adequately controlled Pain: adequately controlled Airway Patency, RR, SpO2: stable & adequate BP & HR: stable & adequate Hydration State: stable & adequate Anesthetic Complications: no major complications apparent
--- NOTE | 2025-03-14 15:45 | GI REPORT ---
[facility] Patient: ALBER INGRAM I : 1940 Sex at : Male Age: 85 Years Procedure: ERCP Date: 03/14/2025 Attending Physician: Abel Escobar MD Referring MD: Referred Self; Nirav Alcazar MD Indications: - Bile duct stone(s) - Possible cholangitis with history of chills Medications: - General Anesthesia - Indomethacin 100 mg MI Complications: - No immediate complications. Estimated Blood Loss: - Estimated blood loss was minimal. Procedure: - The ercp scope was introduced through the mouth and advanced to the duodenum and used to cannulate the bile duct. - The ERCP was accomplished without difficulty. - The patient tolerated the procedure well. Findings: - The embroidery designer film was normal. - The bile duct was deeply cannulated. Contrast was injected. I personally interpreted the bile duct images. Image quality was adequate. The lower third of the main duct contained filling defect(s) thought to be a stone. - The ampulla was within a duodenal diverticulum. The papilla was everted using the sphincterotome. Deep cannulation of common bile duct achieved without injection or manipulation of the pancreatic duct. There was 2 filling defects 1 approximately a centimeter the other 8 mm within the common bile duct. Biliary sphincterotomy undertaken. This was extended in the 11 o'clock position until a good gush of bile was achieved. There appeared to be some pus material within this bile. The duct distally and was dilated with an 8 mm dilating balloon. An 11 to 15 mm extracting balloon was inserted in the proximal duct and the duct was swept. Stones removed from the bile duct. Duct appeared to drain well post. The balloon that was inserted into the bile duct at the bifurcation of duct was swept x 2 for air bubbles. Did not appear to be any further stone material. Procedure was completed. Scope was withdrawn. Impression: - The ampulla was within a duodenal diverticulum. The papilla was everted using the sphincterotome. Deep cannulation of common bile duct achieved without injection or manipulation of the pancreatic duct. There was 2 filling defects 1 approximately a centimeter the other 8 mm within the common bile duct. Biliary sphincterotomy undertaken. This was extended in the 11 o'clock position until a good gush of bile was achieved. There appeared to be some pus material within this bile. The duct distally and was dilated with an 8 mm dilating balloon. An 11 to 15 mm extracting balloon was inserted in the proximal duct and the duct was swept. Stones removed from the bile duct. Duct appeared to drain well post. The balloon that was inserted into the bile duct at the bifurcation of duct was swept x 2 for air bubbles. Did not appear to be any further stone material. Procedure was completed. Scope was withdrawn. - A filling defect consistent with a stone was seen on the cholangiogram. - The examination was suspicious for choledocholithiasis. Removal was not attempted; no stent was inserted. - Common duct stones x 2. Biliary sphincterotomy stone extraction and balloon sweep of the duodenum. Duct draining well post. Recommendation: - Clear liquids today. Follow liver test. Continue IV antibiotics. Should have a cholecystectomy. Procedure Code(s): - 74143, Endoscopic retrograde cholangiopancreatography (ERCP); diagnostic, including collection of specimen(s) by brushing or washing, when performed (separate procedure) - 71719, Endoscopic catheterization of the biliary ductal system, radiological supervision and interpretation Diagnosis Code(s): - K80.50, Calculus of bile duct without cholangitis or cholecystitis without obstruction - R93.2, Abnormal findings on diagnostic imaging of liver and biliary tract CPT(R) - 202 copyright [employer]. All Rights Reserved. The CPT codes, CCI edits and ICD codes generated are intended as suggestions and were generated based on input data. These codes are preliminary and upon steward/stewardess third class review may be revised to meet current compliance and payer requirements. The provider is responsible for the final determination of appropriate codes, and modifiers. Abel Escobar MD This document has been electronically signed. Note Initiated:03/14/2025 Note Completed:03/14/2025 3:45 PM [id number]
--- NOTE | 2025-03-14 15:58 | Communication Note ---
Date of Service: March 14, 2025 Postop post ERCP evaluation Patient seen at the bedside and daughter present. He is feeling well denies any abdominal pain. Reviewed findings common duct stones. Reviewed the need for cholecystectomy to prevent recurrent common duct stones. Clear liquids today. Can advance diet tomorrow if liver test better and lipase normalizing.
[2025-03-14] MEDS: INDOMETHACIN 50 MG SUPP PR ONE (16:05)
[2025-03-14] MEDS: 4.5GM EXT INFUSION IV SCH (17:56)
[2025-03-14] MEDS: MEMANTINE HCL 5 MG TAB PO SCH (21:17)
--- NOTE | 2025-03-14 22:48 | Electrocardiogram Report ---
Test Reason : Blood Pressure : */* mmHG Vent. Rate : 74 BPM Atrial Rate : 74 BPM P-R Int : 192 ms QRS Dur : 102 ms QT Int : 384 ms P-R-T Axes : 66 56 56 degrees QTcB Int : 426 ms Normal sinus rhythm Nonspecific ST abnormality When compared with ECG of 19-Jun-2021 13:53, Premature atrial complexes are no longer Present Confirmed by Nik Valladares ([id number]) on 03/14/2025 10:48:12 PM Referred By: REFERRED SELF Confirmed By: Nik Valladares
[2025-03-15 06:46] LABS: Hematocrit (blood only) 36.3 % (42.0-52.0); Hemoglobin 12.6 g/dL (14.0-18.0); Mean Corpuscular Hemoglobin 32.1 pg (25.0-34.0); Mean Corpuscular Volume 92.4 fL (80.0-100.0); Platelet Count 148 K/uL (130-400); RDW Standard Deviation 45.1 fL (36.4-46.3); Red Blood Count 3.93 M/uL (4.70-6.10); White Blood Count 8.34 K/ul (4.8-10.8)
[2025-03-15 07:54] LABS: Alanine Aminotransferase 147.0 U/L (7-52); Albumin Globulin Ratio 1.5 (0.9-2); Albumin Level 3.7 gm/dl (3.4-5.0); Alkaline Phosphatase 164.0 U/L (34-104); Anion Gap 7.0 (3-11); Bilirubin,Total 2.0 mg/dl (0.2-1.0); Blood Urea Nitrogen 25.0 mg/dl (6-23); Calcium 8.6 mg/dl (8.6-10.3); Carbon Dioxide 25.0 mmol/L (21-32); Chloride 104.0 mmol/L (98-107); Creatinine Clr Calc Pharmacy 58.0 ml/min; Globulin 2.4 gm/dl (2.5-4.0); Glucose 166.0 mg/dl (70-99(Fasting)); Magnesium 1.8 mg/dl (1.7-2.4); Potassium 4.1 mmol/L (3.5-5.1); Sodium 136.0 mmol/L (136-145); Total Protein 6.1 gm/dl (6.0-8.3)
[2025-03-15 09:00] LABS: Lipase 8.0 U/L (11-82)
--- NOTE | 2025-03-15 09:46 | Fluoroscopy Report ---
ERCP CLINICAL HISTORY: ERCP. COMPARISON: Right upper quadrant ultrasound performed earlier today. FLUOROSCOPY TIME: 1 minute and 46 seconds NUMBER OF FLUOROSCOPIC IMAGES: 1 Ka,r: 17.374 mGy. FINDINGS: Fluoroscopy was provided during ERCP. The common bile duct was cannulated. A defect within the distal common bile duct suggests a common bile duct calculus. Balloon is noted. IMPRESSION: Fluoroscopy provided during ERCP demonstrating choledocholithiasis. Electronically signed by: Julio Zaragoza M.D. 03/15/2025 9:43 AM
[2025-03-15] MEDS: busPIRone 5 MG TAB PO SCH (10:21)
[2025-03-15] MEDS: ATORVASTATIN 10 MG TAB PO SCH (10:21)
[2025-03-15] MEDS: FINASTERIDE 5 MG TAB PO SCH (10:22)
[2025-03-15] MEDS: FOLIC ACID 1 MG TAB PO SCH (10:22)
[2025-03-15] MEDS: TAMSULOSIN HCL 0.4 MG CAP PO SCH (10:23)
[2025-03-15] MEDS: THIAMINE HCL 100 MG TAB PO SCH (10:23)
--- NOTE | 2025-03-15 10:44 | Gastroenterology Progress Note ---
Date of Service March 15, 2025 Assessment & Plan (1) Choledocholithiasis: Plan: Patient is s/p ERCP and feeling well. tolerating diet. no GI complaints currently. - okay to advance diet as tolerated. - recommend he see surgery before discharge to see if cholecystectomy is recommended. Admission and Anticipated Discharge Date Admission Date: March 14, 2025 Subjective Patient is feeling well today. no nausea, vomiting, he is tolerating clears and requesting to advance diet. LFTs improved today. Review of Systems Review of Systems: All systems reviewed & are unremarkable except as noted in HPI & below Physical Exam Constitutional: WD/WN, vitals as above Respiratory: normal respiratory effort, lungs clear to auscultation Cardiovascular: Rate/Rhythm: regular rate and regular rhythm Gastrointestinal (Abdomen): normal bowel sounds, soft, nontender, no he patosplenomegaly Psychiatric: Orientation: alert and oriented x 3 Affect: euthymic affect Results & Data Results & Data Vital Signs (Past 12 Hours) Vital Signs Temp Pulse Resp BP BP Pulse Ox O2 Del Method 03/15/25 07:30 97.7 F 65 16 122/67 98 Room Air 03/15/25 04:18 97.9 F 67 16 116/64 96 Room Air 03/14/25 23:00 97.3 F L 52 L 16 108/57 L 96 Room Air, CPAP Coding Level of Care Code 90902 SUB INP/OBS CARE 04/22MIN Diagnoses Choledocholithiasis K80.50
--- NOTE | 2025-03-15 11:42 | Hospitalist Progress Note ---
Date of Service March 15, 2025 Assessment & Plan (1) Acute pancreatitis: (2) Choledocholithiasis: (3) HTN (hypertension): (4) Aortic root enlargement: (5) Insomnia: (6) Arthritis: (7) BPH (benign prostatic hyperplasia): (8) GERD (gastroesophageal reflux disease): Plan 85 yo man with hx of choledocolithiasis (MRCP 03/06 with 9.8mm stone), ascending aortic anurysm, MARY on CPAP, HTN, HLD, BPH, RLS, osteoarthritis, ADD, ALOK, insomnia who presents for nausea, vomiting, and abdominal pain #Acute Choledocholithiasis #Acute Pancreatitis #Early cholangitis Had recent MRCP showing large biliary duct dilatation and stones Gall bladder USS showed cholelithiasis Lipase on presentation elevated at 658 On presentation, Tbil, AST, ALT, AlK P elevated at 4.4, 133, 210, 205 respectively S/p ERCP with stone removal. No stent. Some pus material was noted Hence, Early cholangitis LFT trending down Lipase down to 8 today Continue IV zosyn Gen surg consulted. Discussed with PA who noted they can do cholecystectomy today since patient has not had solid foods Keep NPO for procedure #MARY CPAP #Ascending Abdominal Aneurysm F/u outpatient #HTN #HLD Continue atorvastatin #BPH Continue finasteride, tamsulosin #ALOK #ADD #RLS #Insomnia Continue trazodone, buspar, memantine Updated at bedside Code status - DNR I spent a total of 55 minutes coordinating, documenting and providing care for this patient excluding time spent in performance of separately billed services Admission and Anticipated Discharge Date Admission Date: March 14, 2025 Subjective Patient seen and examined at bedside Patient reports feeling better. Nausea, vomiting are resolved Denied abdominal pain No other complaints on ROS Physical Exam Constitutional: + well hydrated; no acute distress Eyes: PERRL, conjunctivae normal, anicteric sclerae ENMT: external ear and nose normal, oropharynx normal Respiratory: normal respiratory effort, lungs clear to auscultation Cardiovascular: Rate/Rhythm: regular rate and regular rhythm Gastrointestinal (Abdomen): normal bowel sounds, soft, nontender, no hepatosplenomegaly Musculoskeletal: No pedal edema Neurologic: PERRL, EOMI, accommodation nl, no face palsy, no dysarthria Psychiatric: A+Ox3, euthymic affect Results & Data Results & Data Vital Signs (Past 12 Hours) Vital Signs Temp Pulse Resp BP BP Pulse Ox O2 Del Method 03/15/25 11:00 36.9 C 60 16 136/76 95 Room Air 03/15/25 07:30 36.5 C 65 16 122/67 98 Room Air 03/15/25 04:18 36.6 C 67 16 116/64 96 Room Air Laboratory Results Abnormal lab results 03/15/25 Range/Units 06:08 RBC 3.93 L (4.70-6.10) M/uL Hgb 12.6 L (14.0-18.0) g/dL Hct 36.3 L (42.0-52.0) % BUN 25 H (6-23) mg/dl BUN/Creatinine Ratio 26.9 H (10-20) Glucose 166 H (70-99(Fasting)) mg/dl Total Bilirubin 2.0 H D (0.2-1.0) mg/dl AST 53 H (13-39) U/L ALT 147 H (7-52) U/L Alkaline Phosphatase 164 H (34-104) U/L Globulin 2.4 L (2.5-4.0) gm/dl Lipase 8 L (11-82) U/L
--- NOTE | 2025-03-15 13:56 | Surgery Consultation ---
Date of Consultation March 15, 2025 Assessment & Plan (1) Choledocholithiasis: (2) Acute pancreatitis: Plan Patient is an 85-year-old male with a past medical history significant for hypertension, hyperlipidemia, BPH, restless leg syndrome, osteoarthritis, attention deficit disorder, generalized anxiety disorder, insomnia, and ascending aortic aneurysm, who presents to [facility] emergency department complaining of nausea, vomiting, and abdominal pain x 2 days, with evidence of choledocholithiasis and gallstone pancreatitis. He is now status post ERCP with sphincterotomy and stone extraction. Patient was seen and examined, chart reviewed, we will plan on proceeding to the operating room today for a robotic assisted laparoscopic cholecystectomy. I have made the patient n.p.o., and discussed with the medical team, remainder of his care per the primary team. Depending on IntraOp findings, we expect that he should be stable for discharge later today versus tomorrow. General surgery will continue to follow for now. Supervising Physician Co-Signing Physician Notes Patient seen and examined, labs and imaging reviewed, agree with above. History of epigastric pain and reflux, increased LFTs, outpatient workup revealed choledocholithiasis on MRCP. After worsening pain he presented to the hospital and ERCP yesterday with extraction of stones from the bile duct and stent. Surgery consulted for cholecystectomy. On exam he is afebrile with stable vitals, nontender. Scars from prior hernia repairs. Labs reviewed. Cholelithiasis, suspected chronic cholecystitis and choledocholithiasis plan for laparoscopic cholecystectomy risks discussed to include but not limited to bleeding, infection, retained stone, bile leak, open surgery, damage to surrounding structures including bile duct, need for future or more extensive surgery, failure to treat symptoms, and risks of anesthesia. History of Present Illness Reason for Consultation: choledocholithiasis vs gallstone pancreatitis, eval for cholecystectomy Attending Physician: Grecia Lawler MD History of Present Illness Patient is an 85-year-old male with a past medical history significant for hypertension, hyperlipidemia, BPH, restless leg syndrome, osteoarthritis, attention deficit disorder, generalized anxiety disorder, insomnia, and ascending aortic aneurysm, who presents to [facility] emergency department complaining of nausea, vomiting, and abdominal pain x 2 days. Patient states that he developed abdominal pain 2 days ago, across his entire abdomen, described as sharp and stabbing, moderate to severe in intensity, with no ra diation, and associated nausea and vomiting. He states that he has had similar symptoms in the past, however this seemed worse this time and so he came to the emergency department for evaluation. Of note, patient had an outpatient MRCP on March 06, 2025 that showed cholelithiasis with evidence of choledocholithiasis, but he had not seen a general surgeon or french pastry cook. Upon his initial evaluation, he was hemodynamically stable and afebrile. His exam was significant for moderate generalized abdominal tenderness, but with no peritoneal signs. His labs were significant for an elevated white blood cell count 12.83 and an elevated total bilirubin of 4.4. He was admitted to the medical service for management of his chronic disease and gastroenterology was consulted. He had an ERCP yesterday and confirmed choledocholithiasis so a sphincterotomy was performed and the biliary ducts were swept. General surgery was then consulted to evaluate for possible cholecystectomy. Patient currently states that abdominal pain has resolved, denies any fevers or chills, no nausea or vomiting, no constipation or diarrhea. Allergies Allergy/AdvReac Type Severity Reaction Status Date / Time poison whit extract Allergy Intermediate Rash, Skin Verified 04/28/24 09:24 Blistering poison oak extract Allergy Intermediate Rash, Skin Verified 04/28/24 09:24 Blistering Penicillins Allergy Mild Rash Verified 04/28/24 09:24 Home Medications Medication Instructions Recorded Confirmed Type atorvastatin 10 mg tablet 10 mg PO QAM 01/29/20 03/14/25 History tamsulosin 0.4 mg capsule 0.4 mg PO QAM 01/29/20 03/14/25 History bupropion HCl 100 mg tablet,12 hr 0 mg PO QAM 06/19/21 03/14/25 History sustained-release buspirone 10 mg tablet 10 mg PO UD 05/28/23 03/14/25 History glucosamine sulf dipot 1 cap PO BID 05/28/23 03/14/25 History chlr,msm,chond 550 mg-C 30 mg-michoacano 1 mg capsule (Glucosamine Chondroitin) memantine 5 mg tablet 5 mg PO BID 05/28/23 03/14/25 History trazodone 50 mg tablet 50 mg PO HS 05/28/23 03/14/25 History oxycodone 5 mg tablet 5 mg PO Q6H PRN pain #30 tabs 06/30/24 03/14/25 Rx celecoxib 200 mg capsule (Celebrex) 0 mg PO Q12H PRN pain 03/14/25 03/14/25 History finasteride 5 mg tablet 5 mg PO DAILY 03/14/25 03/14/25 History ketoconazole 2 % shampoo 1 applic topical UD 03/14/25 03/14/25 History omeprazole 40 mg capsule,delayed 40 mg PO DAILY 03/14/25 03/14/25 History release Patient History Medical History HTN (hypertension) Per PCP records Patient denies No medications Aortic root enlargement DSE 06/17/23: Moderately enlarged aortic root at 4.5 cm. Mildly enlarged proximal ascending thoracic aorta at 4.3 cm. History of vertigo No issue x years Sinus bradycardia asymptomatic- follows with [facility] Cardio Memory problem Short-term memory issues Insomnia Arthritis BPH (benign prostatic hyperplasia) GERD (gastroesophageal reflux disease) stable Migraine History of skin cancer s/p excision (ear) Borderline high cholesterol Sleep apnea CPAP (compliant) Surgical History S/p reverse total shoulder arthroplasty left, 05/2023 History of lumbar surgery no hardware H/O prostate biopsy History of colonoscopy History of tooth extraction History of ear surgery Left (as child) S/P umbilical hernia repair, follow-up exam 2013, [facility] Family History Other No family history of adverse response to anesthesia Social History Smoking Status: Former smoker Tobacco Type: Cigarettes Smoking End Date: 40 years ago; Second Hand Exposure: No; Do You Dip or Chew Tobacco: No; Tobacco Cessation Education Requested by Patient: No Hx Alcohol Use: Yes Alcohol type: beer Alcohol Intake Frequency: 4 or More x per/Week Hx Substance Use: No Preferred Language: Malaysian Communication Ability: Effective Owner Oral Surgeon Required: No Beliefs That Will Affect Care: None marital status: Current Living Situation: Spouse Current Living Situation Comment: current occupation: [employer] How many Children do You have: 4 Other Information That Helps Us Care for You: No Feels Safe at Home: Yes Safety Concerns: Feels Safe At This Time Assistive Devices: Cane and Walker Review of Systems Review of Systems: All systems reviewed & are unremarkable except as noted in HPI & below Physical Exam Physical Exam: Gen: Awake and alert, resting comfortably in bed in NAD CV: RRR PULM: non-labored breathing Abd: Abd soft, non-tender, non-distended ext: no edema to bilateral lower ext, SCDs in place, non-tender, feet warm and well perfused Results & Data Vital Signs (Past 12 Hours) Vital Signs Temp Pulse Resp BP BP Pulse Ox O2 Del Method 03/15/25 11:00 36.9 C 60 16 136/76 95 Room Air 03/15/25 07:30 36.5 C 65 16 122/67 98 Room Air 03/15/25 04:18 36.6 C 67 16 116/64 96 Room Air Diagnostic Findings Abdominal ultrasound: IMPRESSION: Cholelithiasis without sonographic evidence of acute cholecystitis. PG Care Time/CCT Total # of Minutes Spent Total Time Spent with Patient: Total time spent is greater than 50% in coordination of care (as documented) at patient's floor/unit and/or counseling patient: [place] [address] IN/OBS CONSULT LVL 5,80M Patient Type New Medical Decision Making Straight Forward Diagnoses Choledocholithiasis K80.50 Acute pancreatitis K85.90
--- NOTE | 2025-03-15 14:10 | Anesthesiology Consultation ---
Date of Service March 15, 2025 Assessment & Plan Chart Review Chart Review: Acceptable Risk for Surgery, Patient NOT seen in Pre Admission Testing and entry operator initiated Consults Requested none History Surgery Operation Date: 03/14/25 10:30 Proposed Procedures p Endoscopic Retrograde Cholangiopancreatogram - Abel Escobar MD Operation Date: 03/15/25 10:05 Proposed Procedures p Robotic Laparoscopic Cholecystectomy - Yuri Oliva DO, FACS Height/Weight Height: 5 ft 4 in Weight: 81.42 kg Allergies Allergy/AdvReac Type Severity Reaction Status Date / Time poison whit extract Allergy Intermediate Rash, Skin Verified 04/28/24 09:24 Blistering poison oak extract Allergy Intermediate Rash, Skin Verified 04/28/24 09:24 Blistering Penicillins Allergy Mild Rash Verified 04/28/24 09:24 Medications Home Medications Medication Instructions Recorded Confirmed Last Taken atorvastatin 10 mg tablet 10 mg PO QAM 01/29/20 03/14/25 04/28/24 06:00 tamsulosin 0.4 mg capsule 0.4 mg PO QAM 01/29/20 03/14/25 04/27/24 bupropion HCl 100 mg tablet,12 hr 0 mg PO QAM 06/19/21 03/14/25 04/28/24 06:00 sustained-release buspirone 10 mg tablet 10 mg PO UD 05/28/23 03/14/25 04/28/24 06:00 glucosamine sulf dipot 1 cap PO BID 05/28/23 03/14/25 04/20/24 chlr,msm,chond 550 mg-C 30 mg-michoacano 1 mg capsule (Glucosamine Chondroitin) memantine 5 mg tablet 5 mg PO BID 05/28/23 03/14/25 04/28/24 06:00 trazodone 50 mg tablet 50 mg PO HS 05/28/23 03/14/25 04/27/24 19:00 oxycodone 5 mg tablet 5 mg PO Q6H PRN pain #30 tabs 06/30/24 03/14/25 Unknown celecoxib 200 mg capsule (Celebrex) 0 mg PO Q12H PRN pain 03/14/25 03/14/25 Unknown finasteride 5 mg tablet 5 mg PO DAILY 03/14/25 03/14/25 Unknown ketoconazole 2 % shampoo 1 applic topical UD 03/14/25 03/14/25 Unknown omeprazole 40 mg capsule,delayed 40 mg PO DAILY 03/14/25 03/14/25 Unknown release Active Medications Generic Name Dose Route Start Last Admin Trade Name Yaritza PRN Reason Stop Dose Admin Atorvastatin Calcium 10 mg 03/15/25 09:00 03/15/25 10:21 Atorvastatin 10 Mg Tab PO 04/14/25 08:59 10 mg QAM TEODORO Administration Buspirone HCl 10 mg 03/15/25 09:00 03/15/25 10:21 Buspirone 5 Mg Tab PO 04/14/25 08:59 10 mg DAILY TEODORO Administration Finasteride 5 mg 03/15/25 09:00 03/15/25 10:22 Finasteride 5 Mg Tab PO 04/14/25 08:59 5 mg DAILY TEODORO Administration Folic Acid 1 mg 03/15/25 09:00 03/15/25 10:22 Folic Acid 1 Mg Tab PO 04/14/25 08:59 1 mg QAM TEODORO Administration Piperacillin Sod/Tazobactam Sod 4.5 gm in 100 mls @ 25 mls/hr 03/14/25 18:00 03/15/25 10:23 Zosyn IV 03/24/25 11:59 25 mls/hr Q8H TEODORO Administration Protocol Memantine 5 mg 03/14/25 21:00 03/15/25 10:22 Memantine Hcl 5 Mg Tab PO 04/13/25 20:59 5 mg BID TEODORO Administration Pantoprazole Sodium 40 mg 03/15/25 09:00 03/15/25 10:22 Pantoprazole 40 Mg Tab PO 04/14/25 08:59 40 mg DAILY TEODORO Administration Protocol Tamsulosin HCl 0.4 mg 03/15/25 09:00 03/15/25 10:23 Tamsulosin Hcl 0.4 Mg Cap PO 04/14/25 08:59 0.4 mg QAM TEODORO Administration Thiamine HCl 100 mg 03/15/25 09:00 03/15/25 10:23 Thiamine Hcl 100 Mg Tab PO 04/14/25 08:59 100 mg QAM TEODORO Administration Trazodone HCl 50 mg 03/14/25 21:00 03/14/25 21:18 Trazodone Hcl 50 Mg Tab PO 04/13/25 20:59 50 mg HS TEODORO Administration NPO Date Last Intake of Fluids: 03/14/25 Time Last Intake of Fluids: 06:00 Date Last Intake of Solids: 03/13/25 Time Last Intake of Solids: 17:30 Past Medical History Medical History HTN (hypertension) Per PCP records Patient denies No medications Aortic root enlargement DSE 06/17/23: Moderately enlarged aortic root at 4.5 cm. Mildly enlarged proximal ascending thoracic aorta at 4.3 cm. History of vertigo No issue x years Sinus bradycardia asymptomatic- follows with [facility] Cardio Memory problem Short-term memory issues Insomnia Arthritis BPH (benign prostatic hyperplasia) GERD (gastroesophageal reflux disease) stable Migraine History of skin cancer s/p excision (ear) Borderline high cholesterol Sleep apnea CPAP (compliant) Past Family History Family History Other No family history of adverse response to anesthesia Past Surgical History Surgical History S/p reverse total shoulder arthroplasty left, 05/2023 History of lumbar surgery no hardware H/O prostate biopsy History of colonoscopy History of tooth extraction History of ear surgery Left (as child) S/P umbilical hernia repair, follow-up exam 2013, [facility] Social History Smoking Status: Former smoker Do You Dip or Chew Tobacco: No Smoking End Date: 40 years ago Hx Alcohol Use: Yes Alcohol type: beer alcohol intake frequency: 0-2 drinks per day Hx Substance Use: No substance use type: does not use Physical Exam Vital Signs Last Vital Signs Temp 36.9 C 03/15/25 11:00 Pulse 60 03/15/25 11:00 Resp 16 03/15/25 11:00 BP 136/76 03/15/25 11:00 Pulse Ox 95 03/15/25 11:00 O2 Del Method Room Air 03/15/25 11:00 O2 Flow Rate 6 03/14/25 15:05 Testing Laboratory Results 03/15/25 06:08 03/15/25 06:08 PT 10.0 Seconds (9.0-12.0) 03/14/25 08:36 INR 0.9 (0.9-1.1) 03/14/25 08:36 Urine Color See Comment 03/14/25 11:22 Urine Appearance Clear (Clear) 03/14/25 11:22 Urine pH Not Reportable 03/14/25 11:22 Ur Specific [place] 1.023 (1.000-1.030) 03/14/25 11:22 Urine Protein Not Reportable 03/14/25 11:22 Urine Glucose (UA) Not Reportable 03/14/25 11:22 Urine Ketones Not Reportable 03/14/25 11:22 Urine Nitrite Not Reportable 03/14/25 11:22 Ur Leukocyte Esterase Not Reportable 03/14/25 11:22 Urine RBC 3-5 /hpf (0-2) H 03/14/25 11:22 Urine WBC 0-5 /hpf (0-5) 03/14/25 11:22 Ur Epithelial Cells 3-5 /hpf (0-2) H 03/14/25 11:22 Electrocardiogram Date: 03/14/25 Findings: + NSR @ Echocardiogram Date: 05/10/20 EF: 55-69 LV Function: normal RWMA: + none Valvular Disease: + no significant valvular disease aortic root 4.7
[2025-03-15] MEDS ORDERED: ATROPINE SULFATE 0.1 MG/ML 10ML SYR IV PRN ×2 (14:11→14:52)
[2025-03-15] MEDS ORDERED: ONDANSETRON INJ 2 MG/ML 2 ML VIAL IV PRN ×2 (14:11→14:52)
[2025-03-15] MEDS ORDERED: HYDROmorphone INJ 1 MG/ML SYRINGE IV PRN (14:11)
[2025-03-15] MEDS: LACTATED RINGER'S 1,000 ML IV SCH ×2 (14:31→19:19)
[2025-03-15] MEDS ORDERED: PROPOFOL IV EMULSION 10 MG/ML 20 ML VIAL IV ONE (14:50)
[2025-03-15] MEDS ORDERED: ONDANSETRON INJ 2 MG/ML 2 ML VIAL ONE (14:50)
[2025-03-15] MEDS ORDERED: ROCURONIUM BROMIDE 10 MG/ML 5 ML VIAL IV ONE ×2 (14:50→16:16)
[2025-03-15] MEDS ORDERED: DEXAMETHASONE SOD INJ 4 MG/ML VIAL ONE (14:50)
[2025-03-15] MEDS ORDERED: LIDOCAINE 2% 2 ML VIAL/AMP(20MG/ML) INFIL ONE (14:50)
[2025-03-15] MEDS: INDOCYANINE GREEN 25 MG VIAL INJ ONE (14:53)
[2025-03-15] MEDS: BUPIVACAINE 0.5 % 5 MG/1 ML MPF 30ML VIAL ONE (16:04)
[2025-03-15] MEDS ORDERED: ePHEDrine sulfate 50 MG/5 ML SYR ONE (16:16)
[2025-03-15] MEDS ORDERED: SUGAMMADEX SODIUM 200 MG/2 ML VIAL IV ONE (16:17)
[2025-03-15] MEDS ORDERED: KETOROLAC 30 MG/ML VIAL ONE (16:21)
--- NOTE | 2025-03-15 16:24 | Operative Report ---
PG Post Operative Report Pre & Post Diagnosis Operation Date: 03/15/25 10:05 Pre-Op Diagnosis: Choledocholithiasis and Acute pancreatitis Post-Op Diagnosis: Choledocholithiasis and Acute pancreatitis, acute on chronic cholecystitis I identified the patient and participated in the time-out.: Yes Procedure Operation Date: 03/15/25 10:05 Actual Procedures p Robotic Laparoscopic Cholecystectomy(Not Applicable) - Yuri Oliva DO, MAR Surgeon Yuri Oliva DO, MAR Culinary Director Fifi Butts Estimated Blood Loss 10 Findings Consistent with Post-Op Diagnosis Acute on chronic cholecystitis. Critical view of safety obtained, cystic duct and artery doubly clipped and divided. Specimens Gallbladder Anesthesia Type General Complications none Disposition Accompanied Patient To Recovery: No Disposition: Recovery Room Indications 85-year-old male admitted with choledocholithiasis status post ERCP, plan for laparoscopic cholecystectomy. The risks of the procedure were discussed, all questions were answered, and the patient agreed to proceed with surgery as planned. Description of Procedure The patient was properly identified, consented, and taken to the operating room where he was placed in the supine position. 2.5 mg of indocyanine green were administered IV approximately 45 min prior to the surgery. General endotracheal anesthesia was induced. SCDs and a safety belt were placed. Preoperative antibiotics were administered. The patient's abdomen was prepped and draped in the standard sterile fashion. A surgical timeout was performed and all parties were in agreement that this was the correct patient and procedure to be performed and we continued as planned. An incision was made just above the umbilicus and to the left of midline. Veress needle was inserted and saline drop test confirmed entry to the abdomen. The abdomen was insufflated with carbon dioxide which the patient tolerated incident. Veress needle was removed and the abdomen is entered using the Optiview technique and a 5 mm camera. The introducer was removed and the abdomen inspected. No damage from initial trocar placement or Veress needle placement was identified. There were no significant abnormalities to the 4 quadrants of the abdomen. 8 mm robotic ports were then placed on the left and right. An additional 5 mm assistant fitness manager port was placed in the lateral right subcostal position. The patient was placed in reverse Trendelenburg position and rotated towards the left. The robot was then docked and the camera and olimpia otic instruments were inserted. The gallbladder showed significant acute and chronic inflammation. The dome of the gallbladder was grasped by the assistant fitness manager and retracted towards the left upper quadrant and the infundibulum was retracted toward the right lower quadrant revealing Calot's triangle. Peritoneal attachments were taken down with electrocautery and blunt dissection. The cystic duct and artery were circumferentially dissected. A window of safety was obtained showing the cystic duct entering the gallbladder with no aberrant structures noted. We were able to identify the cystic duct utilizing the ICG. The cystic duct and artery were doubly clipped and divided. The gallbladder was then lifted off the gallbladder fossa with electrocautery. The right upper quadrant was irrigated and hemostasis was found to be good. During the dissection there was some spillage of stones which were retrieved as well as some bile which was irrigated and suctioned. The gallbladder was placed in an Endo Catch bag and removed through the one of the port sites. The fascia of the gallbladder extraction site was closed with an 0 Vicryl suture utilizing the Holland-Marjorie device. The instruments were removed and the robot was undocked. The trochars were removed and the abdomen was allowed to collapse. The skin of all ports was closed with 4-0 Monocryl subcuticular sutures. Dermabond was placed over the wounds. The patient was extubated in the operating room and taken to the PACU where he recovered without apparent incident. All sponge, instrument and needle counts were correct at the conclusion of the procedure. The patient tolerated the procedure well. The physician's assistant fitness manager was present and scrubbed for the entirety of the case and was essential in positioning the patient, prepping and draping, retraction and exposure, driving the laparoscope, exchange of the robotic instruments removal of the gallbladder, closure of the incisions, and placement of the dressings. I attest to the content of the Intraoperative Record and any orders documented therein. Any exceptions are noted below.
[2025-03-15] MEDS: LABETALOL HCL IV 5 MG/ML 20ML IV PRN (16:56)
[2025-03-15] MEDS: LABETALOL HCL IV 5 MG/ML 20ML IV ONE (17:21)
--- NOTE | 2025-03-15 18:14 | Anesthesiology Progress Note ---
Date of Service March 15, 2025 Anesthesia Post Procedure Vital Signs Vital Signs: Temp Pulse Pulse Resp BP BP Pulse Ox 03/15/25 17:20 69 20 152/72 H 98 03/15/25 17:10 98.1 F 70 16 134/73 98 03/15/25 17:00 76 14 145/76 H 98 03/15/25 16:50 119 H 12 192/82 H 92 03/15/25 16:42 97.0 F L 109 H 10 L 192/85 H 100 03/15/25 14:31 99.0 F 58 L 20 141/71 H 94 03/15/25 11:00 98.4 F 60 16 136/76 95 03/15/25 07:30 97.7 F 65 16 122/67 98 03/15/25 04:18 97.9 F 67 16 116/64 96 03/14/25 23:00 97.3 F L 52 L 16 108/57 L 96 03/14/25 21:17 03/14/25 18:40 97.7 F 61 16 134/67 97 O2 Del Method O2 Flow Rate 03/15/25 17:20 Nasal Cannula 2 03/15/25 17:10 Nasal Cannula 3 03/15/25 17:00 Oxymask 6 03/15/25 16:50 Oxymask 8 03/15/25 16:42 Oxymask 8 03/15/25 14:31 Room Air 03/15/25 11:00 Room Air 03/15/25 07:30 Room Air 03/15/25 04:18 Room Air 03/14/25 23:00 Room Air, CPAP 03/14/25 21:17 Room Air, CPAP 03/14/25 18:40 Room Air Pain Intensity Abdomen: Pain Intensity: 2 Transfer of Care Handoff Completed per policy Notes Mental Status: alert / awake / arousable and participated in evaluation Patient Amnestic to Procedure: Yes Nausea / Vomiting: adequately controlled Pain: adequately controlled Airway Patency, RR, SpO2: stable & adequate BP & HR: stable & adequate Hydration State: stable & adequate Anesthetic Complications: no major complications apparent and Pt Satisfied with anesthetic care
[2025-03-15] MEDS ORDERED: MoRPHine SULFATE 4 MG/ML 1 ML CARP\\VIAL IV PRN (18:23)
[2025-03-15] MEDS ORDERED: MoRPHine SULFATE 2 MG/ML CARP IV PRN (18:23)
[2025-03-16] MEDS: diphenhydrAMINE Capsule 25 MG CAP PO ONE (01:51)
[2025-03-16] MEDS: ACETAMINOPHEN 500 MG TAB PO PRN (01:51)
[2025-03-16 05:10] LABS: Hematocrit (blood only) 34.5 % (42.0-52.0); Hemoglobin 12.1 g/dL (14.0-18.0); Mean Corpuscular Hemoglobin 32.7 pg (25.0-34.0); Mean Corpuscular Volume 93.2 fL (80.0-100.0); Platelet Count 161 K/uL (130-400); RDW Standard Deviation 44.7 fL (36.4-46.3); Red Blood Count 3.70 M/uL (4.70-6.10); White Blood Count 10.79 K/ul (4.8-10.8)
[2025-03-16 05:27] LABS: Alanine Aminotransferase 140.0 U/L (7-52); Albumin Globulin Ratio 1.3 (0.9-2); Albumin Level 3.5 gm/dl (3.4-5.0); Alkaline Phosphatase 151.0 U/L (34-104); Anion Gap 8.0 (3-11); Bilirubin,Total 1.2 mg/dl (0.2-1.0); Blood Urea Nitrogen 23.0 mg/dl (6-23); Calcium 8.7 mg/dl (8.6-10.3); Carbon Dioxide 23.0 mmol/L (21-32); Chloride 105.0 mmol/L (98-107); Creatinine Clr Calc Pharmacy 56.1 ml/min; Globulin 2.7 gm/dl (2.5-4.0); Glucose 165.0 mg/dl (70-99(Fasting)); Potassium 3.9 mmol/L (3.5-5.1); Sodium 136.0 mmol/L (136-145); Total Protein 6.2 gm/dl (6.0-8.3)
[2025-03-16 07:06] VITALS: RESP 16
--- NOTE | 2025-03-16 09:19 | Surgery Progress Note ---
Date of Service March 16, 2025 Assessment & Plan (1) Choledocholithiasis: Plan: POD#1 robot lap michael, POD#2 ERCP WBC 10.7, Hbg 12, LFTs show Tb 1.2, with others downtrending. Vitals stable Pain tolerable. On clears without issues Will advance diet as tolerates Stable for d/c to home once cleared by medicine D/c instructions reviewed, f/u in the office in [address] ferro Admission and Anticipated Discharge Date Admission Date: March 14, 2025 Supervising Physician Co-Signing Physician Notes Patient seen and examined, labs reviewed, agree with above. POD #1 robotic cholecystectomy, PPD #2 ERCP. Feeling much better, tolerated liquids Afebrile stable vitals. Abdomen soft, incisions with Dermabond, no infection, appropriately tender to palpation. LFTs downtrending, other labs stable. Okay to discharge to home if tolerates regular diet from general surgery standpoint. Follow-up with me in 2 weeks. Wound care instructions and activity restrictions reviewed. APAP and/or NSAIDs as needed pain, oxycodone Rx for breakthrough pain. Return precautions given, call clinic with questions or concerns Subjective Patient feels fairly well. Some pain around diaphragm but tolerable. On clears without nausea/vomiting. Passing some gas. Physical Exam Physical Exam: awake, alert, no distress Respiratory: normal respiratory effort Gastrointestinal (Abdomen): Inspection/Auscultation: + abdominal surgical incision (c/d/i with dermabond) Percussion/Palpation: + abdomen tender (mild yessenia incisional discomfort) and abdomen soft Results & Data Vital Signs (Past 12 Hours) Vital Signs Temp Pulse Pulse Resp BP Pulse Ox O2 Del Method 03/16/25 07:40 97.7 F 52 L 16 140/66 95 Room Air 03/16/25 07:01 97.7 F 53 L 16 150/66 H 95 Room Air 03/16/25 02:57 98.1 F 56 L 14 122/63 95 Room Air 03/15/25 23:28 97.9 F 55 L 16 125/68 95 Room Air, CPAP 03/15/25 21:27 Room Air, CPAP PG Care Time/CCT Total # of Minutes Spent Total Time Spent with Patient: Total time spent is greater than 50% in coordination of care (as documented) at patient's floor/unit and/or counseling patient: Coding Level of Care Code 21532 Post Operative Follow-Up Diagnoses Choledocholithiasis K80.50
--- NOTE | 2025-03-16 12:04 | Discharge Summary ---
Date of Service March 16, 2025 Admission HPI Per Admitting Provider 85 yo male with pmhx of choledocolithiasis (MRCP 03/06 with 9.8mm stone), ascending aortic anurysm, MARY on CPAP, HTN, HLD, BPH, RLS, osteoarthritis, ADD, ALOK, insomnia who presents for nausea, vomiting, and abdominal pain. Last admission was in 2023 for left total knee arthroplasty. Of note, had MRCP on 03/06/2025 with the following read: GALLBLADDER/BILE DUCTS: Cholelithiasis. No gallbladder wall thickening. Multiple choledocholithiasis are visualized. The largest measures 9.8 mm (image 21 series 4). Common bile duct measures 8.8 mm. Mild dilatation of the central intrahepatic biliary ducts. There is no pancreatic ductal dilatation. Patient seen and examined at bedside. Patient doing ok today. This morning began having nausea and vomiting. Has been having increased bouts of vomiting over the past 2 weeks. He states that he has some mild RUQ pain and trace epigastric pain. Otherwise, denies chest pain, SOB, swelling in legs, other associated symptoms. 2 beers per night alcohol use, denies tobacco and drug use, DNRDNI (ok with pressors and all other measures up until ) discussed with patient. Admission Exam Per Admitting Provider Gen: A&O 3 NAD HEENT: NCAT, EOMI, not icteric. External ears normal. No rhinorrhea. Moist mucous membranes. Neck: Supple, full range of motion, no observable masses, No meningeal sign. Lungs: No Respiratory distress. CV: RRR, no edema. Abdomen: mild tenderness to palpation in RUQ and epigastric region MSK: No joint swelling, no redness. Skin: No rashes, petechiae, lesions. Normal color per patient. Neuro: Normal Gait, Grossly intact. Psych: Appropriate for situation. Principal Diagnosis Choledocholithiasis Acute pancreatitis Robotic cholecystectomy Early cholangitis Discharge Exam Constitutional + well hydrated; no acute distress Eyes PERRL, conjunctivae normal, anicteric sclerae ENMT external ear and nose normal, oropharynx normal Respiratory normal respiratory effort, lungs clear to auscultation Cardiovascular Rate/Rhythm: regular rate and regular rhythm Gastrointestinal (Abdomen) normal bowel sounds, soft, nontender, no hepatosplenomegaly Neurologic PERRL, EOMI, accommodation nl, no face palsy, no dysarthria Psychiatric A+Ox3, euthymic affect Discharge Data Allergies Allergy/AdvReac Type Severity Reaction Status Date / Time poison whit extract Allergy Intermediate Rash, Skin Verified 04/28/24 09:24 Blistering poison oak extract Allergy Intermediate Rash, Skin Verified 04/28/24 09:24 Blistering Penicillins Allergy Mild Rash Verified 04/28/24 09:24 Consultations 03/14/25 10:25 ED Decision to Admit Stat 03/14/25 10:31 Consult Gastroenterology Routine 03/15/25 11:15 Consult General Surgery Routine Procedures Performed Operation Date: 03/15/25 10:05 Actual Procedures p Robotic Laparoscopic Cholecystectomy(Not Applicable) - Yuri Oliva, DO, FACS Ordered Studies 03/14/25 09:02 US gallbladder Stat 03/14/25 14:00 FL ERCP biliary ductal Routine Hospital Course (1) Acute pancreatitis: (2) Choledocholithiasis: (3) HTN (hypertension): (4) Aortic root enlargement: (5) Insomnia: (6) Arthritis: (7) BPH (benign prostatic hyperplasia): (8) GERD (gastroesophageal reflux disease): Plan 85 yo man with hx of choledocolithiasis (MRCP 03/06 with 9.8mm stone), ascending aortic anurysm, MARY on CPAP, HTN, HLD, BPH, RLS, osteoarthritis, ADD, ALOK, insomnia who presents for nausea, vomiting, and abdominal pain #Acute Choledocholithiasis #Acute Pancreatitis #Early cholangitis Had recent MRCP showing large biliary duct dilatation and stones Gall bladder USS showed cholelithiasis Lipase on presentation elevated at 658 On presentation, [place], AST, ALT, AlK P elevated at 4.4, 133, 210, 205 respectively S/p ERCP with stone removal. No stent. Some pus material was noted Hence, Early cholangitis LFT trending down Lipase trended down to 8 He was treated with IV zosyn inpatient Gen surgery evaluated and patient had cholecystectomy on 03/15/25 Patient tolerating diet well today. No complaints on evaluation today Discharged on PO Augmentin to complete total of 10 days of antibiotics treatment Updated at bedside Total Time Total Time Spent Total Time Spent (In Minutes): 45 Total Time Includes: Examination of the Patient, Discharge Planning, Medication Reconciliation and Other Discharge Plan Discharge Items Patient Disposition: Home - Self-Care Reason For Visit: CHOLEDOCOLITHIASIS Discharge Diagnosis: Choledocholithiasis Acute pancreatitis Robotic cholecystectomy Early cholangitis Condition on Discharge: Good Activity: Per Instructions section Lifting: No more than 10 pounds Bathing Comment: may shower; no soaking in tubs/pools x 2 weeks Exercise/Sports: Wait until after follow-up appointment Driving/Machine Use: no driving while on narcotics for pain Non-emergency contact: Primary Care Provider and Surgeon Call non-emergency contact if: you have any medication questions, your pain is worsening, you have a fever, your temperature is above 101.5, your wound has increased redness, your wound has increased drainage and your wound pain has increased Follow-up/Referrals: Yuri Oliva DO, FACS [Physician] - 03/27/25 11:30 am (Please call to schedule follow up in the office in 2 weeks ) Ger Contrreas MD [Primary Care Provider] - 03/20/25 11:00 am (Date & Time 03/20/2025 11:00 AM Provider: Valarie Umaña CRNP [facility] [place] ) Diet: Regular Addtl Attending Provider Instructions: Mr Carroll Ledbetter were hospitalized and managed for the above listed diagnoses. You had ERCP with removal of gall stone on 03/14/25 and Gall bladder removal on 03/25/25. You are being discharged on antibiotic Augmentin to complete treatment. Please refer to Surgeon's instructions below. Please ensure follow up with your Primary Doctor It was a pleasure taking care of you Addtl Sales Service Executive Provider Instructions: SPECIAL CARE INSTRUCTIONS: * You have skin glue over your incisions called dermabond. you may shower with this on. It will tend to dissolve and fall off within a couple weeks. Do not pick at the skin glue * You may shower . NO soaking in pools or baths for 2 weeks * No lifting greater than 10lbs. No strenuous exercise until cleared by surgeon. Light walking is accepted. * No driving while taking narcotic pain medication; wait at least 3 days * No drinking alcohol while taking narcotic pain medication * May use Ibuprofen/Tylenol over the counter for pain as tolerated. Do not exceed 3grams of Tylenol per 24 hours * Expect some swelling and bruising. * Diet- you may resume your regular diet Call your doctor if: * Temperature above 101 degrees, nausea/vomiting, fever/chills * Pain not relieved by pain medicine ordered * There is increased drainage or redness from any incision * You have any unanswered questions or concerns [phone]. FOLLOW UP VISIT: If not already scheduled, please call the office for a follow-up visit. Office Pending Studies at Discharge: Yes Studies:: surgical pathology Stand-Alone Forms: [facility] batterii, Smoking Cessation Medications and DC Order Prescriptions: New amoxicillin-pot clavulanate 875-125 mg tablet 1 tab PO BID 7 Days Qty: 14 0RF Continued oxycodone 5 mg tablet 5 mg PO Q6H PRN (Reason: pain) Qty: 30 0RF Patient Comments: 03/14- last filled 06/30 atorvastatin 10 mg tablet 10 mg PO QAM tamsulosin 0.4 mg capsule 0.4 mg PO QAM bupropion HCl 100 mg tablet sustained-release 12 hr 0 mg PO QAM Patient Comments: 03/14- no fill history unable to verify. Original:100mg po qam trazodone 50 mg Tablet 50 mg PO HS buspirone 10 mg Tablet 10 mg PO UD Patient Comments: 03/14- last filled 02/09 90 day supply #270. original: 10 mg po qam memantine 5 mg Tablet 5 mg PO BID Glucosamine Chondroitin 550-30-1 mg Capsule 1 cap PO BID Patient Comments: 03/14- otc unable to verify ketoconazole 2 % shampoo 1 applic TOPICAL UD omeprazole 40 mg capsule,delayed release(DR/EC) 40 mg PO DAILY finasteride 5 mg tablet 5 mg PO DAILY celecoxib [Celebrex] 200 mg capsule 0 mg PO Q12H PRN (Reason: pain) Patient Comments: 03/14- no fill history unable to verify. original: 200mg po q12h prn Discharge Orders: Discharge Order (Routine); Ordered 03/16/25 Ordered By: Grecia Lawler Admission Data Admit Date/Time: 03/14/25 10:25 Attending Provider: Grecia Lawler I. Admit Provider: Nirav Alcazar Primary Care Provider: Ger Contreras Other Providers: Nirav Alcazar; Abel Escobar; Yuri Oliva Other Interventions: Discharge Summary Assessment (RN) Last Done: 03/16/25 13:23
[2025-03-16 13:11] VITALS: BP 112/62; PULSE 59; TEMP 98.1; O2SAT 94
== END 2025-03-16 15:52 | disposition home or self-care (01) | DRG 411 ==
LOC: ED 08:01 → 3E 10:25 → SUATTDRO 10:25 → 3E 12:29